=== PATIENT | female | born 1975 | race Caucasian/White ===

== ENCOUNTER 2017-04-24 09:43 | Inpatient (IN) | payer MEDICARE, MEDICAID ==
[2017-04-24 10:12] VITALS: BMI 39.4
[2017-04-24] MEDS ORDERED: Sodium Chloride 0.9% 1,000 ML IV STA (10:45)
--- NOTE | 2017-04-24 10:59 | RAD ---
HISTORY: cough COMPARISON: 05/18/2014 FINDINGS: LUNGS: No active pulmonary disease. PLEURA: No significant pleural effusion identified, no pneumothorax apparent. CARDIOVASCULAR: Normal. OSSEOUS STRUCTURES: No significant abnormalities. VISUALIZED UPPER ABDOMEN: Normal. OTHER FINDINGS: None. IMPRESSION: No active disease.
--- NOTE | 2017-04-24 11:01 | ED PDOC ---
Arrival/HPI - General Chief Complaint: Abdominal Pain Time Seen by Provider: 04/24/17 10:30 Historian: Patient - History of Present Illness Narrative History of Present Illness (Text): 04/24/17 11:01 A 42 year old female, whose past medical history includes hypertension and kidney stones, was brought in by EMS to the emergency department complaining of abdominal pain, back pain and left leg swelling. Patient reports left sided abdominal pain radiating to the left side of back, worse with movement that developed yesterday afternoon. Reports pain is similar to pain from kidney stones. Also notes chronic left leg swelling for the past week and bruising, denies any injury or pain. Reports increase in urination and some nausea but denies any cough, dysuria, right sided abdominal pain, or any other complaints at this time. PMD: Dr. Parks Time/Duration: 24 hours, 1 week Symptom Onset: Sudden Symptom Course: Unchanged Activities at Onset: Rest Context: Home Past Medical History - Provider Review Nursing Documentation Reviewed: Yes - Infectious Disease Hx of Infectious Diseases: None - Tetanus Immunization Tetanus Immunization: Unknown - Cardiac Hx Cardiac Disorders: Yes Hx Hypertension: Yes - Pulmonary Hx Respiratory Disorders: Yes Hx Asthma: Yes - Neurological Hx Neurological Disorder: Yes Other/Comment: sciatica - HEENT Hx HEENT Disorder: No - Renal Hx Renal Disorder: Yes Hx Kidney Stones: Yes - Endocrine/Metabolic Hx Endocrine Disorders: Yes Hx Hypothyroidism: Yes - Hematological/Oncological Hx Blood Disorders: No - Integumentary Hx Dermatological Disorder: No - Musculoskeletal/Rheumatological Hx Musculoskeletal Disorders: Yes Hx Herniated Disk: Yes - Gastrointestinal Hx Gastrointestinal Disorders: No - Genitourinary/Gynecological Hx Genitourinary Disorders: No - Psychiatric Hx Psychophysiologic Disorder: No Hx Substance Use: No - Surgical History Hx Section: Yes (x3) Hx Tubal Ligation: Yes - Anesthesia Hx Anesthesia: Yes Hx Anesthesia Reactions: No Hx Malignant Hyperthermia: No - Suicidal Assessment Feels Threatened In Home Enviroment: No Family/Social History - Physician Review Nursing Documentation Reviewed: Yes Family/Social History: No Known Family HX Smoking Status: Never Smoked Hx Alcohol Use: Yes (OCCASSIONAL) Hx Substance Use: No Hx Substance Use Treatment: No Allergies/Home Meds Allergies/Adverse Reactions: Allergies No Known Allergies Allergy (Verified 04/24/17 10:00) Home Medications: Home Meds Medication Instructions Recorded Confirmed Albuterol HFA [Ventolin HFA 90 2 puff IH [id number] PRN 04/24/17 04/24/17 mcg/actuation (8 g)] Azithromycin [Zithromax] 250 mg PO DAILY 04/24/17 04/24/17 Budesonide/Formoterol Fumarate 2 aer IH TID 04/24/17 04/24/17 [Symbicort] Cabergoline 0.5 mg PO 2XW 04/24/17 04/24/17 Cetirizine HCl [All Day Allergy 10 mg PO DAILY 04/24/17 04/24/17 Relief] Cholecalciferol [Vitamin D] 50,000 iu PO QWK 04/24/17 04/24/17 Fluticasone Propionate [Flonase] 2 spray ANJALI DAILY 04/24/17 04/24/17 Gabapentin [Neurontin] 500 mg PO TID 04/24/17 04/24/17 Hydrochlorothiazide [Microzide] 12.5 mg PO DAILY 04/24/17 04/24/17 Levothyroxine [Synthroid] 100 mcg PO DAILY 04/24/17 04/24/17 Meloxicam [Mobic] 7.5 mg PO BID 04/24/17 04/24/17 Montelukast [Singulair] 10 mg PO DAILY 04/24/17 04/24/17 Oxycodone HCl/Acetaminophen 1 tab PO BID PRN 04/24/17 04/24/17 [Endocet 325 mg-10 mg] amLODIPine [Norvasc] 10 mg PO DAILY 04/24/17 04/24/17 tiZANidine [Zanaflex] 4 mg PO HS 04/24/17 04/24/17 Review of Systems - Review of Systems Constitutional: Fatigue. absent: Fevers Eyes: absent: Vision Changes ENT: Rhinorrhea, Sinus Congestion. absent: Sore Throat, Epistaxis Respiratory: Cough. absent: SOB Cardiovascular: absent: Chest Pain, Edema, Calf Pain, JULIEN Gastrointestinal: Abdominal Pain (left sided), Nausea, Appetite Changes. absent : Diarrhea, Vomiting, Hematochezia, Hematemesis Genitourinary Female: Frequency, Other (increase in urination). absent: Dysuria , Hematuria Musculoskeletal: Back Pain (left side), Other (chronic left leg swelling). absent: Neck Pain Skin: absent: Rash Neurological: absent: Headache, Dizziness Endocrine: absent: Polyuria Hemo/Lymphatic: Easy Bruising Psychiatric: absent: Depression Physical Exam - Physical Exam Narrative Physical Exam (Text): 04/24/17 10:58 Head: Atraumatic. Normocephalic. Eyes: PERRL. EOMI. Conjunctivae are not pale. ENT: Mucous membranes are moist and intact. Oropharynx is clear and symmetric. Neck: Supple. Full ROM. No JVD. No lymphadenopathy. Cardiovascular: Regular rate. Regular rhythm. No murmurs, rubs, or gallops. Distal pulses are 2+ and symmetric. Pulmonary/Chest: No evidence of respiratory distress. Clear to auscultation bilaterally. No wheezing, rales or rhonchi. Abdominal: moderate LUQ, LLQ abdominal pain. No rebound, guarding, or rigidity. No organomegaly. Good bowel sounds. No rlq pain. No pulsatile masses. Back: mild left CVA tenderness. No midline pain or deformity. Extremities: bilateral nonpitting edema. No cyanosis. No clubbing. Full range of motion in all extremities. No calf tenderness. No pain with ROM of ankle, knee. No warmth or erythema to joints. Strong distal pulses. No calf pain. Skin: Skin is warm and dry. No petechiae. No purpura. Bruising noted to lower extremities with no soft tissue swelling or petechiae. Neurological: Alert, awake, and oriented to person, place, time, and situation. Normal speech. Motor and sensory intact. No meningeal signs. Psychiatric: Good eye contact. Normal interaction, affect, and behavior. Vital Signs Reviewed: Yes Vital Signs Temp Pulse Resp BP Pulse Ox 04/24/17 10:00 98.0 F 63 18 123/76 100 04/24/17 09:56 98.0 F 63 18 123/76 100 Temperature: Afebrile Blood Pressure: Normal Pulse: Regular Respiratory Rate: Normal Appearance: Positive for: Non-Toxic, Uncomfortable Pain Distress: Moderate Mental Status: Positive for: Alert and Oriented X 3 Medical Decision Making ED Course and Treatment: 04/24/17 10:58 Impression: A 42 year old female with abdominal pain, back pain and complaint of leg swelling.. Differential Diagnosis included but are not limited to: kidney stones vs. pyelonephritis vs. colitis vs. renal disease Plan: -- chest xray -- CT abdomen/pelvis -- US lower extremity -- labs -- Urinalysis -- IV fluids -- Reassess and disposition Prior Visits: Notes and results from previous visits were reviewed. Patient was last seen in the emergency department on 12/25/14 for evaluation of left ankle pain s/o trip and fall. Progress Notes: Patient reports URI symptoms prior to abdominal pain. Denies cough currently. On exam, no rib pain palpated, no rash. There is some bruising noted but patient does not recollect trauma, no history of taking blood thinners or any history of bleeding disorders. She reports bilateral leg swelling "for a while" but worse in left leg recently. No calf pain noted. No chest pain or sob or pleuritic pain or hypoxia noted. She reports sudden onset of left sided abdominal pain radiating to left back with frequency of urination. 04/24/17 11:01 chest xray: Creator : Matheus Hills MD FINDINGS: LUNGS: No active pulmonary disease. PLEURA: No significant pleural effusion identified, no pneumothorax apparent. CARDIOVASCULAR: Normal. OSSEOUS STRUCTURES: No significant abnormalities. VISUALIZED UPPER ABDOMEN: Normal. IMPRESSION: No active disease. 04/24/17 14:54 CT Abdomen and Pelvis without intravenous contrast Creator : Matheus Hills MD FINDINGS: LOWER THORAX: Unremarkable. LIVER: Unremarkable. No gross lesion or ductal dilatation. GALLBLADDER AND BILE DUCTS: Unremarkable. PANCREAS: Pancreas is normal in size. There is a small ovoid soft tissue density immediately adjacent to or arising from the pancreatic tail, approximately 1.9 cm in greatest dimension. This is slightly more prominent than on prior CT examination of 10/21/2013. This may represent a spleen you will. Given slight interval change, further evaluation is advised with a multiphasic contrast-enhanced study, utilizing a pancreatic protocol. There is no other pancreatic mass identified. There is no peripancreatic fluid. . SPLEEN: Unremarkable. ADRENALS: Unremarkable. No mass. KIDNEYS AND URETERS: There is no renal mass, or calculus. There is mild left hydronephrosis. There is a 5 mm obstructing calculus at the right ureteropelvic junction. There is no right hydronephrosis. VASCULATURE: Unremarkable. No aortic aneurysm. BOWEL: Unremarkable. No obstruction. No gross mural thickening. APPENDIX: Unremarkable. Normal appendix. PERITONEUM: Unremarkable. No free fluid. No free air. LYMPH NODES: Unremarkable. No enlarged lymph nodes. BLADDER: Unremarkable. REPRODUCTIVE: Uterus significant for bilateral Essure contraceptive implants. BONES: No acute fracture. IMPRESSION: Obstructing 5 mm calculus at right ureteropelvic junction with mild left hydronephrosis. 1.9 cm ovoid soft tissue density adjacent to or arising from pancreatic tail, mildly more prominent than on prior examination of 10/21/2013. Possible small annual. Recommend further evaluation with multiphasic contrast enhanced CT utilizing pancreatic protocol. No other significant abnormality. 04/24/17 15:06 On reassessment, patient still with persistent and severe pain with IV morphine. Based on likely intractable renal colic. Patient will be admitted for urology consultation, IV hydration and pain control. Case discussed with Dr. Parks. On re-evaluation, I have reviewed treatment plan of iv toradol, iv antibiotics and urology consultation. Abnormal CT findings as above reviewed with PMD and stressed need for gastroenterology follow-up for possible pancreatic findings and limitations of current CT. - Lab Interpretations Lab Results: 04/24/17 10:40 04/24/17 10:40 Lab Results 04/24/17 10:40: Urine Color Yellow, Urine Appearance Sl cloudy, Urine pH 6.0, Ur Specific [place] 1.015, Urine Protein Negative, Urine Glucose (UA) Negative, Urine Ketones Negative, Urine Blood Large H, Urine Nitrate Negative, Urine Bilirubin Negative, Urine Urobilinogen 0.2, Ur Leukocyte Esterase Negative, Urine RBC 10 - 15, Urine WBC 0 - 2, Urine HCG, Qual Negative 04/24/17 10:40: Sodium 140, Potassium 4.3, Chloride 103, Carbon Dioxide 26, Anion Gap 15, BUN 17, Creatinine 0.8, Est GFR ( Amer) > 60, Est GFR (Non- Af Amer) > 60, Random Glucose 83, Calcium 9.1, Total Bilirubin 0.7, AST 29, ALT 26, Alkaline Phosphatase 66, Total Protein 7.4, Albumin 4.3, Globulin 3.1, Albumin/Globulin Ratio 1.4, Amylase 123, Lipase 141 04/24/17 10:40: PT 9.8 L, INR 0.91 L, APTT 24.9 04/24/17 10:40: WBC 12.3 H D, RBC 4.34, Hgb 13.4, Hct 40.6, MCV 93.5, MCH 30.9, MCHC 33.0, RDW 13.9, Plt Count 321, MPV 9.0, Gran % 73.3 H, Lymph % (Auto) 21.1 L, Harmon % (Auto) 5.0, Eos % (Auto) 0.3 L, Baso % (Auto) 0.3, Gran # 9.01 H, Lymph # 2.6, Harmon # 0.6, Eos # 0.0, Baso # 0.04 I have reviewed the lab results: Yes - RAD Interpretation Radiology Orders: 04/24/17 10:43 ABD & PELVIS W/O PO OR IV CONT [CT] Stat CHEST PORTABLE [RAD] Stat 04/24/17 12:57 DUPLEX LOWER EXTRM VEIN BILAT [US] Stat - Medication Orders Current Medication Orders: Discontinued Medications Sodium Chloride (Sodium Chloride 0.9%) 1,000 mls @ 1,000 mls/hr IV .Q1H STA Stop: 04/24/17 11:44 Last Admin: 04/24/17 10:49 Dose: 1,000 mls/hr eMAR Start Stop Document 04/24/17 10:49 MR (Rec: 04/24/17 10:50 MR [id number]) Intravenous Solution Start Date 04/24/17 Start Time 10:50 End Date 04/24/17 End time 11:50 Total Infusion Time 60 Ceftriaxone Sodium (Rocephin 1 Gram Ivpb) 1 gm in 100 mls @ 200 mls/hr IVPB ONCE STA PRN Reason: Protocol Stop: 04/24/17 15:37 Last Admin: 04/24/17 15:39 Dose: 200 mls/hr eMAR Start Stop Document 04/24/17 15:39 MR (Rec: 04/24/17 15:39 MR [id number]) Intravenous Solution Start Date 04/24/17 Start Time 15:39 End Date 04/24/17 End time 16:09 Total Infusion Time 30 Ketorolac Tromethamine (Toradol) 30 mg IVP ONCE ONE Stop: 04/24/17 15:09 Last Admin: 04/24/17 15:39 Dose: 30 mg MAR Pain Assessment Document 04/24/17 15:39 MR (Rec: 04/24/17 15:40 MR [id number]) Pain Reassessment Is this a pain reassessment? Yes Sleep Is patient sleeping during reassessment? No Presence of Pain Presence of Pain Yes Pain Scale Used Pain Scale Used Numeric Location Left, Right or Bilateral Left Upper or Lower Lower Pain Location Body Site Abdomen Description Description Sharp Intensity of Pain at present 8 Pain Behavior Facial Grimacing Aggravating Factors Changing Position Alleviating Factors/Management Medication Techniques Alleviating Factors Medication IVP Administration Document 04/24/17 15:39 MR (Rec: 04/24/17 15:40 MR [id number]) Charges for Administration # of IVP Administrations 1 Morphine Sulfate (Morphine) 2 mg IVP STAT STA Stop: 04/24/17 11:09 Last Admin: 04/24/17 11:50 Dose: 2 mg MAR Pain Assessment Document 04/24/17 11:50 (Rec: 04/24/17 11:50 MR [id number]) Pain Reassessment Is this a pain reassessment? Yes Sleep Is patient sleeping during reassessment? No Presence of Pain Presence of Pain Yes Pain Scale Used Pain Scale Used Numeric Location Left, Right or Bilateral Left Upper or Lower Lower Pain Location Body Site Abdomen Back Description Description Constant Intensity of Pain at present 10 Pain Behavior Rubbing Site Facial Grimacing Aggravating Factors Changing Position Alleviating Factors/Management Medication Techniques Alleviating Factors Medication IVP Administration Document 04/24/17 11:50 MR (Rec: 04/24/17 11:50 MR [id number]) Charges for Administration # of IVP Administrations 1 - Scribe Statement The provider has reviewed the documentation as recorded by the Pia Masterson Provider Scribe Attestation: All medical record entries made by the Brigidibglenis were at my direction and personally dictated by me. I have reviewed the chart and agree that the record accurately reflects my personal performance of the history, physical exam, medical decision making, and the department course for this patient. I have also personally directed, reviewed, and agree with the discharge instructions and disposition. Disposition/Present on Arrival - Present on Arrival Any Indicators Present on Arrival: No History of DVT/PE: No History of Uncontrolled Diabetes: No Urinary Catheter: No History of Decub. Ulcer: No History Surgical Site Infection Following: None - Disposition Have Diagnosis and Disposition been Completed?: Yes Diagnosis: Abdominal pain, Renal colic on left side, Abnormal abdominal CT scan Disposition: HOSPITALIZED Disposition Time: 13:51 Patient Plan: Admission Condition: FAIR Referrals: Neyda Parks MD [Primary Care Provider] - Follow up with primary Forms: Consulted (Greek)
[2017-04-24] MEDS ORDERED: Morphine 2 mg/ml ISec IVP STA (11:08)
[2017-04-24 11:20] LABS: BASO # 0.04 K/mm3 (0.0-2.0); BASO % 0.3 % (0.0-3.0); EOS % 0.3 % (1.5-5.0); GRAN # 9.01 (1.4-6.5); GRAN % 73.3 % (50.0-68.0); HEMATOCRIT 40.6 % (36.0-48.0); LYMPH # 2.6 (1.2-3.4); LYMPH % 21.1 % (22.0-35.0); MEAN CELL VOLUME 93.5 fl (80.0-105.0); MEAN CORPUSCULAR HEMOGLOBIN 30.9 pg (25.0-35.0); MONO # 0.6 (0.1-0.6); RED CELL DISTRIBUTION WIDTH 13.9 % (11.5-14.5); URINE BILIRUBIN NEGATIVE (NEGATIVE); URINE BLOOD LARGE (NEGATIVE); URINE GLUCOSE (UA) NEGATIVE (NEGATIVE); URINE KETONE NEGATIVE (NEGATIVE); URINE LEUKOCYTE ESTERASE NEGATIVE Leu/uL (NEGATIVE); URINE PROTEIN NEGATIVE mg/dL (<30 mg/dL); URINE UROBILINOGEN 0.2 E.U./dL (<1 E.U./dL); WHITE BLOOD COUNT 12.3 10^3/ul (4.5-11.0)
[2017-04-24 11:22] LABS: URINE APPEARANCE SL CLOUDY (CLEAR); URINE COLOR YELLOW (YELLOW)
[2017-04-24 11:26] LABS: URINE WBC 0 - 2 /hpf (0-6)
[2017-04-24 11:28] LABS: ALB/GLOB RATIO 1.4 (1.1-1.8); ALKALINE PHOSPHATASE 66 U/L (38-126); ALT/SGPT 26 U/L (7-56); AMYLASE 123 U/L (35-125); AST/SGOT 29 U/L (14-36); BILIRUBIN,TOTAL 0.7 mg/dL (0.2-1.3); BLOOD UREA NITROGEN 17 mg/dL (7-21); CALCIUM 9.1 mg/dL (8.4-10.5); CARBON DIOXIDE 26 mmol/L (21-33); CHLORIDE 103 mmol/L (98-107); GFR AFRICAN-AMERICAN > 60; GLUCOSE,RANDOM 83 mg/dL (70-110); LIPASE 141 U/L (23-300); POTASSIUM 4.3 mmol/L (3.6-5.0); SODIUM 140 mmol/L (132-148); TOTAL PROTEIN 7.4 g/dL (5.8-8.3)
[2017-04-24 11:40] LABS: INR 0.91 (0.93-1.08); PARTIAL THROMBOPLASTIN TIME 24.9 Seconds (23.7-30.8)
--- NOTE | 2017-04-24 14:51 | CT ---
PROCEDURE: CT Abdomen and Pelvis without intravenous contrast HISTORY: left flank/abdominal pain COMPARISON: 10/11/2013 TECHNIQUE: Without contrast.. Contrast Dose: 0 Radiation dose: Total exam DLP = 914.67 mGy-cm. This CT exam was performed using one or more of the following dose reduction techniques: Automated exposure control, adjustment of the mA and/or kV according to patient size, and/or use of iterative reconstruction technique. FINDINGS: LOWER THORAX: Unremarkable. LIVER: Unremarkable. No gross lesion or ductal dilatation. GALLBLADDER AND BILE DUCTS: Unremarkable. PANCREAS: Pancreas is normal in size. There is a small ovoid soft tissue density immediately adjacent to or arising from the pancreatic tail, approximately 1.9 cm in greatest dimension. This is slightly more prominent than on prior CT examination of 10/21/2013. This may represent a spleen you will. Given slight interval change, further evaluation is advised with a multiphasic contrast-enhanced study, utilizing a pancreatic protocol. There is no other pancreatic mass identified. There is no peripancreatic fluid. . SPLEEN: Unremarkable. ADRENALS: Unremarkable. No mass. KIDNEYS AND URETERS: There is no renal mass, or calculus. There is mild left hydronephrosis. There is a 5 mm obstructing calculus at the right ureteropelvic junction. There is no right hydronephrosis. VASCULATURE: Unremarkable. No aortic aneurysm. BOWEL: Unremarkable. No obstruction. No gross mural thickening. APPENDIX: Unremarkable. Normal appendix. PERITONEUM: Unremarkable. No free fluid. No free air. LYMPH NODES: Unremarkable. No enlarged lymph nodes. BLADDER: Unremarkable. REPRODUCTIVE: Uterus significant for bilateral Essure contraceptive implants. BONES: No acute fracture. OTHER FINDINGS: None. IMPRESSION: Obstructing 5 mm calculus at right ureteropelvic junction with mild left hydronephrosis. 1.9 cm ovoid soft tissue density adjacent to or arising from pancreatic tail, mildly more prominent than on prior examination of 10/21/2013. Possible small annual. Recommend further evaluation with multiphasic contrast enhanced CT utilizing pancreatic protocol. No other significant abnormality. CT on November zone at so you can go to the 5-1.257 as I knees and 1.25 is 5 percent cerebral no
[2017-04-24] MEDS ORDERED: cefTRIAXone 1 gm 1 GM/100 ML BAG IVPB STA (15:08)
[2017-04-24] MEDS ORDERED: Albuterol-Ipratrop 3 mg / 0.5 (3 ml) UD IH PRN (20:36)
[2017-04-24] MEDS ORDERED: Pneumococcal 23-Valent Vaccine IM ONE (22:35)
[2017-04-24] MEDS: HYDROmorphone 0.5 mg/0.5 ml ISec IVP PRN (22:36)
[2017-04-25] MEDS: Levothyroxine 100 MCG TAB PO SCH (06:30)
[2017-04-25 09:21] LABS: HEMATOCRIT 37.5 % (36.0-48.0); MEAN CELL VOLUME 95.4 fl (80.0-105.0); MEAN CORPUSCULAR HEMOGLOBIN 30.8 pg (25.0-35.0); MEAN CORPUSCULAR HGB CONC 32.3 g/dl (31.0-37.0); RED CELL DISTRIBUTION WIDTH 14.2 % (11.5-14.5); WHITE BLOOD COUNT 8.9 10^3/ul (4.5-11.0)
[2017-04-25] MEDS: cefTRIAXone 1 gm 1 GM/100 ML BAG IVPB SCH (09:52)
[2017-04-25] MEDS ORDERED: CABERGOLINE 0.5 MG PO SCH ×2 (10:00→20:47)
[2017-04-25] MEDS: SYMBICORT IH SCH ×2 (10:04→14:05)
[2017-04-25] MEDS: Fluticasone Nasal 50 mcg/Spray NS SCH (10:18)
--- NOTE | 2017-04-25 15:53 | HP ---
CHIEF COMPLAINT: Abdominal pain, swelling of the leg. HISTORY OF PRESENT ILLNESS: Ms. Edilma Patrick is a 42-year-old, my private patient, with history of hypertension, kidney stones, who was brought to the ER by EMS because of complaining of abdominal pain, back pain, left leg swelling. The patient reports left-sided abdominal pain radiating to the left side of the back, worse with movement, that developed yesterday afternoon. Actually, the patient was seen in my office yesterday in the morning with upper respiratory tract infection symptoms, sore throat, headache, dizziness and the patient was treated, but later on, in the evening, she started more complaints. According to the patient, the patient had similar complaints when she had stones the last time. Also, the patient has history of asthma. The patient is reporting increase in urination, some nausea, but denies any dysuria. No fevers, no chills. PAST MEDICAL HISTORY: Hypertension, asthma, sciatica, history of kidney stones, hypothyroidism, history of herniated disk, section x3, tubal ligation. FAMILY HISTORY: Father and mother, noncontributory. HABITS: Never smoked. Alcohol, yes occasionally. Substance abuse, no. ALLERGIES: THE PATIENT IS NOT ALLERGIC WITH ANY MEDICATIONS. HOME MEDICATIONS: Albuterol, Zithromax, Symbicort, cabergoline, cetirizine, vitamin D, Flonase, Neurontin, Synthroid, Mobic, Singulair, oxycodone, amlodipine, and Zanaflex. REVIEW OF SYSTEMS: The patient is seen and examined on the bedside in the ER, looking comfortable. No nausea, vomiting, or diarrhea. No hematochezia. No headache or dizziness. Complaining of left flank pain and polyuria. PHYSICAL EXAMINATION VITAL SIGNS: Temperature 98, pulse 72, blood pressure 125/72, and respiratory rate 18. HEENT: Head is normocephalic and atraumatic. Eyes, PERRLA. Extraocular muscles intact. Conjunctivae clear. Nose patent. NECK: Supple. No carotid bruits. No JVD or thyromegaly. CHEST: Clear to auscultation. EXTREMITIES: Positive edema. No cyanosis. NEUROLOGICAL: The patient is awake and alert. Moving all 4 extremities. No focal deficits. LABORATORY DATA: White blood cell 12.3, hemoglobin 13.4, hematocrit 40.6, platelets 321. Sodium 140, potassium 4.3. BUN 17 and creatinine 0.8. AST 29 and ALT 26. Urine had large blood. ASSESSMENT AND PLAN: Ms. Edilma Patrick is a 42-year-old lady with leukocytosis and hematuria. Extremity ultrasound is done. Results are pending. Chest x-ray is done. CAT scan of the abdomen and pelvis done, showed ,5 mm calculus on the right ureteropelvic junction with mild left hydronephrosis, 1.1 cm ovoid soft tissue density arising from the pancreatic tail, mildly more prominent than on the prior examination. Further evaluation with multiphasic contrast-enhanced CT utilizing pancreatic protocol. We will consult with Dr. Young for nephrolithiasis and hydronephrosis. The patient has a history of hypothyroidism, asthma, herniated disk, chronic back pain, GERD, dyspepsia. Old medications started. Pain medications given. We will follow up. Neyda Parks MD MTDD
--- NOTE | 2017-04-25 16:18 | CP.PCM.CON ---
<Rahel Silva - Last Filed: 04/25/17 19:37> History of Present Illness - History of Present Illness History of Present Illness: Seen and examined earlier today, chart reviewed. Request for consult is for abnormal ct scan. HPI: This is a 42-year-old female with a past medical history of hypertension and kidney stones, she was brought to the emergency room with complaints of abdominal pain mostly to the left lower quadrant, complain of back pain and left leg swelling. The patient reports that the left-sided abdominal pain radiates to the left side of her back. She states that abdominal pain started late Friday, it was her birthday and her mother through her a barbecue. She recalls eating hamburgers and hotdogs. Late that night she started having nausea and abdominal pain. The pain started to increase on Friday, she describes it as a throbbing pain, still nausea and also episode of vomiting, denies hematemesis. When she also had episode of diarrhea after a formed bowel movement. No reports of melena or bright red blood per rectum. The past 5 days she is complaining of increased heartburn and has been taking OTC Zantac. The patient did complain of chills and a temperature of 101. She does report that her mother has been sick with a cold, denies any recent travel. The patient denies dysuria or hematuria but does report increased urination. On admission she had a CT scan of abdomen and pelvis with no contrast which is reporting a ovoid soft tissue density arising from the pancreatic tail which is reported to be more prominent from compared to the CT scan done on 10/21/2013 and the patient also noted to have a 5 mm obstructing calculus in the ureteropelvic junction with mild left hydronephrosis. Patient also had Dopplers of lower extremity and the preliminary report shows that it's negative both for DVT. Patient denies any pancreatic disease.spaced denies ever having EGD or colonoscopy. Past medical history: Hypertension, kidney stone, 4 years ago, obesity, asthma, hypothyroidism Surgical history: C-sections 3 and tubal ligation LMP: March 16, irregular, patient states she has been seen by the [facility] and reported to be premenopausal, she's states that her mother, grandmother and aunts or also premenopausal in early state. Allergies no known drug allergies Family history: Grandma: Reports cancer but unknown, father: Heart disease Social history: Denies tobacco use, drinks wine on rare occasion, denies substance abuse Medications: Reviewed as per MAR ROS: Systems reviewed with positive findings see HPI. Past Patient History - Infectious Disease Hx of Infectious Diseases: None - Tetanus Immunizations Tetanus Immunization: Unknown - Past Social History Smoking Status: Never Smoked - CARDIAC Hx Cardiac Disorders: Yes Hx Hypertension: Yes - PULMONARY Hx Respiratory Disorders: Yes Hx Asthma: Yes - NEUROLOGICAL Hx Neurological Disorder: Yes Other/Comment: sciatica - HEENT Hx HEENT Problems: Yes (eyeglasses) - RENAL Hx Chronic Kidney Disease: Yes Hx Kidney Stones: Yes - ENDOCRINE/METABOLIC Hx Endocrine Disorders: Yes Hx Hypothyroidism: Yes - HEMATOLOGICAL/ONCOLOGICAL Hx Blood Disorders: No - INTEGUMENTARY Hx Dermatological Problems: No - MUSCULOSKELETAL/RHEUMATOLOGICAL Hx Falls: No - GASTROINTESTINAL Hx Gastrointestinal Disorders: No - GENITOURINARY/GYNECOLOGICAL Hx Genitourinary Disorders: No - PSYCHIATRIC Hx Substance Use: No - SURGICAL HISTORY Hx Surgeries: Yes (tubal, c sec x3) - ANESTHESIA Hx Anesthesia: Yes Hx Anesthesia Reactions: No Hx Malignant Hyperthermia: No Meds Allergies/Adverse Reactions: Allergies Allergy/AdvReac Type Severity Reaction Status Date / Time No Known Allergies Allergy Verified 04/24/17 10:00 - Medications Medications: Current Medications Albuterol/Ipratropium (Duoneb 3 Mg/0.5 Mg (3 Ml) Ud) 3 ml IH [id number] PRN PRN Reason: Shortness of Breath Amlodipine Besylate (Norvasc) 10 mg PO DAILY [facility] Last Admin: 04/25/17 09:51 Dose: 10 mg Fluticasone Propionate (Flonase) 1 actuation NS DAILY [facility] Last Admin: 04/25/17 10:18 Dose: 1 spray Gabapentin (Neurontin) 400 mg PO TID [facility] PRN Reason: Protocol Last Admin: 04/25/17 09:50 Dose: 400 mg Gabapentin (Neurontin) 100 mg PO TID [facility] PRN Reason: Protocol Last Admin: 04/25/17 09:51 Dose: 100 mg Home Med (Home Med) 1 unit IH TID [facility] Home Med (Home Med) 1 unit PO 2XW [facility] Hydrochlorothiazide (Microzide) 12.5 mg PO DAILY [facility] Last Admin: 04/25/17 09:50 Dose: 12.5 mg Hydromorphone HCl (Dilaudid) 0.5 mg IVP Q6H PRN PRN Reason: Pain, severe (8-10) Last Admin: 04/24/17 22:36 Dose: 0.5 mg Ceftriaxone Sodium (Rocephin 1 Gram Ivpb) 1 gm in 100 mls @ 200 mls/hr IVPB DAILY [facility] PRN Reason: Protocol Last Admin: 04/25/17 09:52 Dose: 200 mls/hr Levothyroxine Sodium (Synthroid) 100 mcg PO 0600 [facility] Last Admin: 04/25/17 06:30 Dose: 100 mcg Loratadine (Claritin) 10 mg PO DAILY [facility] Last Admin: 04/25/17 09:41 Dose: 10 mg Montelukast Sodium (Singulair) 10 mg PO DAILY [facility] Last Admin: 04/25/17 09:52 Dose: 10 mg Tizanidine HCl (Zanaflex) 4 mg PO HS [facility] Last Admin: 04/24/17 23:28 Dose: 4 mg Physical Exam - Constitutional Appears: No Acute Distress - Head Exam Head Exam: NORMOCEPHALIC - Eye Exam Eye Exam: Normal appearance. absent: Scleral icterus - ENT Exam ENT Exam: Mucous Membranes Moist - Neck Exam Neck exam: Positive for: Normal Inspection - Respiratory Exam Respiratory Exam: Clear to Auscultation Bilateral, NORMAL BREATHING PATTERN. absent: Respiratory Distress - Cardiovascular Exam Cardiovascular Exam: +S1, +S2 - GI/Abdominal Exam GI & Abdominal Exam: Normal Bowel Sounds, Soft, Tenderness (left lower quadrant) . absent: Guarding, Rebound - Extremities Exam Extremities exam: Positive for: pedal pulses present. Negative for: calf tenderness, pedal edema - Neurological Exam Neurological exam: Alert, CN II-XII Intact, Oriented x3 - Skin Skin Exam: Dry, Warm Results - Vital Signs Recent Vital Signs: Last Vital Signs Temp 98 F 04/25/17 08:19 Pulse 62 04/25/17 08:19 Resp 20 04/25/17 08:19 BP 132/85 04/25/17 09:51 Pulse Ox 98 04/25/17 08:19 - Labs Result Diagrams: 04/25/17 09:10 04/24/17 10:40 Labs: Laboratory Results - last 24 hr 04/25/17 04/25/17 04/25/17 06:00 07:23 09:10 WBC 8.9 D RBC 3.93 Hgb 12.1 Hct 37.5 MCV 95.4 MCH 30.8 MCHC 32.3 RDW 14.2 Plt Count 293 MPV 9.0 POC Glucose (mg/dL) 79 TSH 3rd Generation 7.00 H 04/25/17 11:11 WBC RBC Hgb Hct MCV MCH MCHC RDW Plt Count MPV POC Glucose (mg/dL) 85 TSH 3rd Generation Assessment & Plan - Assessment and Plan (Free Text) Assessment: Assessment: Abnormal CT scan: Tissue density noted and the pancreatic tail more prominent compared to CT scan 10/21/2013 5 mm obstructing calculus utero pelvic junctionwith mild left hydronephrosis Gastroenteritis Heartburn Obesity Hypertension History of renal stones Hypothyroidism Plan: start GI prophylaxis, Pepcid 20 mg daily on ceftriaxone Urology follow-up DVT prophylaxis Consider CT scan with pancreatic protocol, will discuss with attending Thank you for this consult and follow last a participate in your patient's care , further recommendations based on clinical course. Seen and discussed with Dr. Damon. <Arsh Damon V - Last Filed: 04/25/17 23:49> Meds - Medications Medications: Current Medications Albuterol/Ipratropium (Duoneb 3 Mg/0.5 Mg (3 Ml) Ud) 3 ml IH [id number] PRN PRN Reason: Shortness of Breath Amlodipine Besylate (Norvasc) 10 mg PO DAILY [facility] Last Admin: 04/25/17 09:51 Dose: 10 mg Famotidine (Pepcid) 40 mg PO HS [facility] Last Admin: 04/25/17 21:13 Dose: 40 mg Fluticasone Propionate (Flonase) 1 actuation NS DAILY [facility] Last Admin: 04/25/17 10:18 Dose: 1 spray Gabapentin (Neurontin) 400 mg PO TID [facility] PRN Reason: Protocol Last Admin: 04/25/17 18:39 Dose: 400 mg Gabapentin (Neurontin) 100 mg PO TID [facility] PRN Reason: Protocol Last Admin: 04/25/17 18:39 Dose: 100 mg Home Med (Home Med) 0 unit IH TID [facility] Home Med (Home Med) 0.5 unit PO MON [facility] Home Med (Home Med) 0.5 unit PO FRI [facility] Hydrochlorothiazide (Microzide) 12.5 mg PO DAILY [facility] Last Admin: 04/25/17 09:50 Dose: 12.5 mg Hydromorphone HCl (Dilaudid) 0.5 mg IVP Q6H PRN PRN Reason: Pain, severe (8-10) Last Admin: 04/25/17 16:57 Dose: 0.5 mg Ceftriaxone Sodium (Rocephin 1 Gram Ivpb) 1 gm in 100 mls @ 200 mls/hr IVPB DAILY [facility] PRN Reason: Protocol Last Admin: 04/25/17 09:52 Dose: 200 mls/hr Sodium Chloride (Sodium Chloride 0.9%) 1,000 mls @ 100 mls/hr IV .Q10H [facility] Last Admin: 04/25/17 21:13 Dose: 100 mls/hr Levothyroxine Sodium (Synthroid) 100 mcg PO 0600 [facility] Last Admin: 04/25/17 06:30 Dose: 100 mcg Loratadine (Claritin) 10 mg PO DAILY [facility] Last Admin: 04/25/17 09:41 Dose: 10 mg Montelukast Sodium (Singulair) 10 mg PO DAILY [facility] Last Admin: 04/25/17 09:52 Dose: 10 mg Ondansetron HCl (Zofran Inj) 4 mg IVP Q6H PRN PRN Reason: Nausea/Vomiting Tamsulosin HCl (Flomax) 0.4 mg PO DAILY [facility] Tizanidine HCl (Zanaflex) 4 mg PO HS [facility] Last Admin: 04/24/17 23:28 Dose: 4 mg Results - Vital Signs Recent Vital Signs: Last Vital Signs Temp 98.3 F 04/25/17 16:00 Pulse 73 04/25/17 16:00 Resp 18 04/25/17 16:00 BP 110/79 04/25/17 16:00 Pulse Ox 99 04/25/17 16:00 - Labs Result Diagrams: 04/25/17 09:10 04/24/17 10:40 Labs: Laboratory Results - last 24 hr 04/25/17 04/25/17 04/25/17 06:00 07:23 09:10 WBC 8.9 D RBC 3.93 Hgb 12.1 Hct 37.5 MCV 95.4 MCH 30.8 MCHC 32.3 RDW 14.2 Plt Count 293 MPV 9.0 POC Glucose (mg/dL) 79 TSH 3rd Generation 7.00 H 04/25/17 04/25/17 04/25/17 11:11 16:04 21:59 WBC RBC Hgb Hct MCV MCH MCHC RDW Plt Count MPV POC Glucose (mg/dL) 85 88 138 H TSH 3rd Generation Attending/Attestation - Attestation I have personally seen and examined this patient.: Yes I have fully participated in the care of the patient.: Yes I have reviewed all pertinent clinical information: Yes
[2017-04-25] MEDS: HYDROmorphone 0.5 mg/0.5 ml ISec IVP PRN (16:57)
[2017-04-25] MEDS: Sodium Chloride 0.9% 1,000 ML IV SCH (21:13)
--- NOTE | 2017-04-25 21:41 | US ---
HISTORY: Leg pain and swelling. Evaluate for DVT PHYSICIAN(S): Matheus Palacios MD. TECHNIQUE: Duplex sonography and color-flow Doppler with graded compression were used to evaluate the deep venous systems of both lower extremities. FINDINGS: The visualized deep venous systems of both lower extremities are sonographically normal and compressible. Normal wave forms and augmentation are seen. There is no sonographic evidence for deep venous thrombosis in the visualized segments of both lower extremities. IMPRESSION: No sonographic evidence for deep venous thrombosis in the visualized segments of both lower extremities.
--- NOTE | 2017-04-26 00:04 | PN ---
DATE: SUBJECTIVE: The patient is 42 years old female. The patient was seen and examined in the room, looking comfortable. No nausea, vomiting or diarrhea. No hematuria or hematochezia. Swelling of the leg is better. No chest pain. Coughing is better. Shortness of breath is better. No headache or dizziness, was still having flank pain. No fever. No chills. PHYSICAL EXAMINATION: VITAL SIGNS: Temperature 98, pulse 52, respiratory rate 20, blood pressure 132/85 and pulse oximetry 98%. HEENT: Head normocephalic and atraumatic. Eyes, PERRLA. Extraocular muscles intact. Conjunctivae clear. Nose patent. Mucous membrane moist. NECK: Supple. No carotid bruits. No JVD or thyromegaly. CHEST: Bilaterally symmetrical. HEART: S1 and S2 positive. LUNGS: Clear to auscultation. ABDOMEN: Soft. Bowel sounds are present. No organomegaly. EXTREMITIES: No edema. No cyanosis. NEUROLOGIC: The patient is awake, alert and moving all 4 extremities. No focal deficit. LABORATORY DATA: White blood cell 8.9, hemoglobin 12.1, hematocrit 37.5 and platelets 293. Sodium 140, potassium 4.3, BUN 17 and creatinine 0.8. Glucose 83. MEDICATIONS: Hydrochlorothiazide, Dilaudid, Rocephin, Synthroid, [place], Singulair and Zanaflex. ASSESSMENT AND PLAN: Ms. Celina France is a 42 years old lady with upper respiratory tract infection, failed outpatient treatment, came with flank pain, hypertension, history of renal stones, hypothyroidism, obesity, heartburn, gastroenteritis, 5 mm obstructing calculus in ureteropelvic junction with mild left hydronephrosis. Abnormal CAT scan, tissue density noted and pancreatic tail more prominent compared to CT scan. Gastrointestinal consult called, seen by SARAH Yap. The patient is getting gastrointestinal prophylaxis, 20 mg Pepcid, on ceftriaxone. Urologist is on the case, waiting for the input. Deep venous thrombosis prophylaxis, waiting for gastroenterology may be the need. CAT scan of the pancreas with the pancreatic protocol. Extremity ultrasound is done. Results are pending. Abdomen and pelvis x-rays are done. Getting pain medication. Allergy medications, that is why the patient on Flomax, getting gabapentin and amlodipine for hypertension. Normal saline given. Zofran for nauseousness. Repeat labs. We will follow. Neyda Parks MD
--- NOTE | 2017-04-26 03:38 | CON ---
PULMONARY CONSULT DATE: 04/25/2017 REFERRING PHYSICIAN: Neyda Parks MD REASON FOR CONSULT: Chronic obstructive lung disease, may have sleep apnea syndrome, and admitted with renal stone with obstruction. HISTORY OF PRESENT ILLNESS: This is a 42 years old female with known past medical history significant for hypertension, asthma, lumbar radiculopathy, history of renal stone in the past, hypothyroid, presented with colicky abdominal pain, leg swelling, and has abdominal CT done shows renal stone with hydronephrosis. She admitted for further workup and pain management. Admit to snoring at nighttime, daytime sleepy, and tired. PAST MEDICAL HISTORY: As per history of present illness. FAMILY HISTORY: No significant cardiopulmonary disease reported. SOCIAL HISTORY: Never smoked. Denied any alcohol abuse. ALLERGIES: ALLERGY TO NO MEDICATIONS. MEDICATIONS: She is on Claritin 10 mg daily, Dilaudid 0.5 mg q.6 hours p.r.n., DuoNeb q.6 hours, Flonase one spray each nostril daily, also getting home meds of Symbicort, hydrochlorothiazide 12.5 mg daily, Neurontin 400 mg 3 times a day, Norvasc 10 mg daily, Pepcid 40 mg daily, Rocephin 1 g daily, Singulair 10 mg daily, Synthroid 100 mcg daily, Zanaflex 4 mg at bedtime, and Zofran p.r.n. basis. LABORATORY DATA: Shows hemoglobin 12.1, hematocrit 37.5, WBC 8.9, and platelet is 293. Sodium 140, potassium 4.3, chloride 103, bicarbonate 26, BUN 17, creatinine 0.8, glucose 83, calcium 9.1, AST 29, ALT 26, alk phos is 66, albumin is 4.3, and 7.0. CAT scan of the abdomen and pelvis done on admission shows obstructing 5 mm calculus at the right ureteropelvic junction with mild hydronephrosis, there is also 1.9 cm ovoid soft-tissue density adjacent or rising from the pancreatic tail, mildly or more prominent than the prior examination since 2012. IMPRESSION ADN PLAN: Obstructive renal stone with hydronephrosis, chronic obstructive lung disease, may have obstructive sleep apnea syndrome, also has some leukocytosis and hematuria, hypertension, hypothyroid, and lumbar radiculopathy. I agrees with Dr. Parks of the present management, may had IV fluid, normal saline 70 mL/hour. We will add Flomax p.o. daily. Continue pain management, gastric prophylaxis, DVT prophylaxis, and urology consult. We will recommend PFT and sleep study upon discharge as an outpatient. Thank you and will follow with you. Evelia Shaw MD
[2017-04-26] MEDS: Sodium Chloride 0.9% 1,000 ML IV SCH ×2 (06:38→17:28)
[2017-04-26] MEDS: Levothyroxine 100 MCG TAB PO SCH (06:38)
[2017-04-26 07:52] LABS: HEMATOCRIT 38.4 % (36.0-48.0); MEAN CELL VOLUME 94.8 fl (80.0-105.0); MEAN CORPUSCULAR HEMOGLOBIN 30.4 pg (25.0-35.0); MEAN PLATELET VOLUME 8.8 fl (7.0-11.0); WHITE BLOOD COUNT 9.2 10^3/ul (4.5-11.0)
[2017-04-26] MEDS: HYDROmorphone 0.5 mg/0.5 ml ISec IVP PRN ×3 (08:17→21:26)
[2017-04-26 08:19] LABS: ALB/GLOB RATIO 1.3 (1.1-1.8); ALKALINE PHOSPHATASE 50 U/L (38-126); ALT/SGPT 21 U/L (7-56); AST/SGOT 24 U/L (14-36); BILIRUBIN,TOTAL 0.2 mg/dL (0.2-1.3); BLOOD UREA NITROGEN 16 mg/dL (7-21); CALCIUM 8.6 mg/dL (8.4-10.5); CARBON DIOXIDE 26 mmol/L (21-33); CHLORIDE 107 mmol/L (98-107); GFR AFRICAN-AMERICAN > 60; GLUCOSE,RANDOM 84 mg/dL (70-110); POTASSIUM 4.1 mmol/L (3.6-5.0); SODIUM 140 mmol/L (132-148); TOTAL PROTEIN 6.1 g/dL (5.8-8.3)
[2017-04-26] MEDS: CABERGOLINE 0.5 MG PO SCH (10:38)
[2017-04-26] MEDS: Fluticasone Nasal 50 mcg/Spray NS SCH (10:39)
[2017-04-26] MEDS: SYMBICORT IH SCH ×3 (10:39→17:28)
[2017-04-26] MEDS: cefTRIAXone 1 gm 1 GM/100 ML BAG IVPB SCH (10:39)
--- NOTE | 2017-04-26 21:29 | PN ---
PULMONARY PROGRESS NOTE DATE: 04/26/2017 REFERRING PHYSICIAN: Dr. Parks. SUBJECTIVE: He is sitting at the side of the bed. Still having recurrent renal colic pain, on IV fluid, drinking water. No nausea. No vomiting. No chest pain. No leg pain or leg swelling. PHYSICAL EXAMINATION: GENERAL: Mild distress secondary to pain. VITAL SIGNS: Temperature is 98, heart rate 77, respiratory rate 20, blood pressure 186/74 and pulse oximetry 98% on room air. HEENT: Moist mucous membrane. No oral thrush. NECK: Supple. No JVD. LUNGS: Has a fair airflow with few rhonchi. HEART: S1 and S2. ABDOMEN: Positive bowel sound, pain, costovertebral angle tenderness. EXTREMITIES: There is no edema. NEUROLOGIC: Awake, alert and follow simple commands. MEDICATIONS: She is on Claritin 10 mg daily, Dilaudid 0.5 mg q. 6 hours p.r.n., DuoNeb q. 6 hours, Flomax 0.4 mg daily, Flonase one spray each nostril daily, hydrochlorothiazide 12.5 mg daily, gabapentin 400 mg 3 times a day, Neurontin 100 mg 3 times a day, Norvasc 10 mg daily, Pepcid 40 mg at bedtime, Rocephin 1 g daily, Singulair 10 mg daily, IV fluid normal saline 100 mL per hour, Synthroid 100 mcg daily, Zanaflex 4 mg at bedtime and Zofran p.r.n. basis. LABORATORY DATA: Shows hemoglobin 12.3, hematocrit 38.4, WBC 9.2 and platelet is 291. Sodium 140, potassium 4.1, chloride 107, bicarbonate 26, BUN 16, creatinine 0.8, glucose 84 and calcium is 8.6. AST 24, ALT 21, albumin is 3.5. TSH is 7.0. IMPRESSION AND PLAN: Obstructive renal stone, hydronephrosis, chronic obstructive lung disease, may have obstructive sleep apnea syndrome. Also, have hypertension, hypothyroid, lumbar radiculopathy. Pulmonary point of view doing okay. Continue IV fluid. Flomax pain management. Gastric prophylaxis. Deep venous thrombosis prophylaxis. Urology followup. Thank you and we will follow with you. Evelia Shaw MD [facility] # [id number]
[2017-04-27] MEDS: Sodium Chloride 0.9% 1,000 ML IV SCH ×2 (01:30→14:54)
--- NOTE | 2017-04-27 02:05 | PN ---
DATE: SUBJECTIVE: The patient is seen and examined at the bedside. Still having flank pain, but feels better. Coughing little better. No nausea, vomiting or diarrhea. No headache or dizziness. No chest pain or palpitation. No fever. No chills. She passed some sand type thing because she was straining the urine. PHYSICAL EXAMINATION: VITAL SIGNS: Temperature 98.5, pulse 77, blood pressure 186/74 and respiratory rate 18. HEENT: Head normocephalic and atraumatic. Eyes, PERRLA. Extraocular muscles intact. Conjunctivae clear. Nose patent. Mucous membrane moist. NECK: Supple. No carotid bruits. No JVD or thyromegaly. CHEST: Bilaterally symmetrical. HEART: S1 and S2 positive. LUNGS: Clear to auscultation. ABDOMEN: Soft. Bowel sounds are present. No organomegaly. EXTREMITIES: No edema. No cyanosis. NEUROLOGIC: The patient is awake, alert and moving all 4 extremities. No focal deficit. MEDICATIONS: Claritin, Dilaudid, DuoNeb, Flomax and Flonase. HOME MEDICATIONS: Hydrochlorothiazide, Neurontin, Norvasc, Pepcid, Rocephin, Singulair, Synthroid, Zanaflex and Zofran. LABORATORY DATA: White blood cell 9.2, hemoglobin 12.3, hematocrit 38.4 and platelets 291. Sodium 140, potassium 4.1, BUN 15, creatinine 0.8 and glucose 138. TSH is 7.0. ASSESSMENT AND PLAN: Ms. Edilma Patrick is 42 years old lady with hypothyroidism, history of leukocytosis improved, hematuria, nephrolithiasis, hydronephrosis, passed some sand-like stuff. I spoke with the patient's nurse Jan to send that analysis. The patient is straining urine. Chronic obstructive lung disease, obstructive sleep apnea syndrome, history of hypertension, lumbar radiculopathy. Seen by Dr. Young. Dr. Shwa give Flomax. She is doing better. Abnormal CAT scan. SARAH Yap added pancreatic protocol CAT scan. Rule out pancreatic lesion. Upper respiratory infection, improving. Gastrointestinal and deep venous thrombosis prophylaxis. Repeat labs. We will followup. Neyda Parks MD [facility] # [id number]
[2017-04-27] MEDS: Levothyroxine 100 MCG TAB PO SCH (05:52)
[2017-04-27] MEDS: HYDROmorphone 0.5 mg/0.5 ml ISec IVP PRN ×3 (06:22→20:58)
[2017-04-27] MEDS: cefTRIAXone 1 gm 1 GM/100 ML BAG IVPB SCH (10:34)
[2017-04-27] MEDS: SYMBICORT IH SCH ×3 (10:35→18:03)
[2017-04-27] MEDS ORDERED: Iohexol 350 MG/100 ML VIAL ONE (12:07)
[2017-04-27] MEDS: Fluticasone Nasal 50 mcg/Spray NS SCH (14:53)
--- NOTE | 2017-04-27 16:40 | CT ---
PROCEDURE: CT Abdomen and Pelvis with contrast HISTORY: r/o pancreatic lesion COMPARISON: 04/24/2017 TECHNIQUE: Contrast dose: 100 mL Omnipaque 350 Radiation dose: Total exam DLP = 3872.94 mGy-cm. This CT exam was performed using one or more of the following dose reduction techniques: Automated exposure control, adjustment of the mA and/or kV according to patient size, and/or use of iterative reconstruction technique. FINDINGS: LOWER THORAX: Unremarkable. LIVER: Unremarkable. No gross lesion or ductal dilatation. GALLBLADDER AND BILE DUCTS: Unremarkable. PANCREAS: Once again, note is made of an ovoid mass anterior to the distal aspect of the pancreatic tail. On the current examination, it appears to be in contiguity with the pancreas. It measures approximately 1.5 cm in greatest dimension on the current examination. In retrospect, measurement on thin sections from earlier examination of 10/21/2013 demonstrates no significant interval change in size. It is isodense to both the pancreas and spleen on all 3 phases of enhancement. Although this is felt to most likely represent a prominent lobulation of the pancreatic tail, this could also represent a splenule. Given the lack of appreciable interval change since 2013, this is unlikely to represent a pancreatic neoplasm. Nevertheless, continued surveillance is advised. There is no pancreatic ductal dilatation. SPLEEN: Unremarkable. ADRENALS: Unremarkable. No mass. KIDNEYS AND URETERS: Obstructing 6 mm calculus at left ureteropelvic junction. Mild left hydronephrosis. No renal mass. No right calculus or hydronephrosis. VASCULATURE: Unremarkable. No aortic aneurysm. BOWEL: Unremarkable. No obstruction. No gross mural thickening. APPENDIX: Normal appendix. PERITONEUM: Unremarkable. No free fluid. No free air. LYMPH NODES: Unremarkable. No enlarged lymph nodes. BLADDER: Unremarkable. REPRODUCTIVE: Unremarkable uterus. Possible left ovarian cyst, 3.3 cm. Recommend correlation with transvaginal pelvic ultrasound. Bilateral Essure contraceptive implants. BONES: No acute fracture. OTHER FINDINGS: None. IMPRESSION: Probable prominent lobulation of the pancreatic tail or unchanged in size compared to examination of 10/21/2013. Less likely, this represents a splenule, a developmental variant. Followup is advised with contrast-enhanced CT. Low suspicion for pancreatic neoplasm given the lack of interval change. Obstructing 6 mm calculus at left ureteropelvic junction. Mild left hydronephrosis. Additional minor findings as above.
--- NOTE | 2017-04-27 23:54 | PCM.URO ---
Urology Progress Note - Subjective Abdominal Pain: Yes Flank Pain: Yes (consistent with stone) - Objective Lab Studies: Reviewed (and ct reveiwed) Intake & Output: Intake & Output 04/27/17 04/27/17 04/28/17 06:59 18:59 06:59 Intake Total 260 260 Balance 260 260 Intake: Oral 260 260 Other: # Voids Urine, Voided 2 # Bowel Movements 0 Vital Signs: Vital Signs - 24 hr 04/27/17 04/27/17 04/27/17 07:26 10:33 16:00 Temperature 98.0 F 97.8 F Pulse Rate 60 58 L Respiratory 16 18 Rate Blood Pressure 107/69 107/69 121/68 O2 Sat by Pulse 98 98 Oximetry - Plan Intake & Output: Yes Additional Information: gu plan -pt to operating tomorrow for cystoscopy and stent insertion possible stone basketing and possible laser lithotripsy
--- NOTE | 2017-04-28 00:11 | PN ---
DATE: SUBJECTIVE: The patient is a 42-year-old female. The patient is seen and examined at the bedside. Still having pain in the left flank, going to the back and coming on the front also. Even pain medication is not helping. No nausea, vomiting. No headache or dizziness. No chest pain. No fever. No shortness of breath. No palpitation. No swelling of the legs. PHYSICAL EXAMINATION: VITAL SIGNS: Temperature 97.8, pulse 58, blood pressure 120/68, respiratory rate 18. HEENT: Head normocephalic and atraumatic. Eyes, PERRLA. Extraocular muscles intact. Conjunctivae clear. Nose patent. Mucous membrane moist. NECK: Supple. No carotid bruits. No JVD or thyromegaly. CHEST: Bilaterally symmetrical. HEART: S1 and S2 positive. LUNGS: Clear to auscultation. ABDOMEN: Soft. Tender in the left flank area. No organomegaly. Bowel sounds are positive. EXTREMITIES: No edema. No cyanosis. NEUROLOGIC: The patient is awake, alert, follow simple command. Oriented x3. MEDICATIONS: Claritin, Dilaudid, DuoNeb, Flomax, Flonase, hydrochlorothiazide, Neurontin, Norvasc, Pepcid, Rocephin, Singular, Synthroid, Zanaflex. LABORATORY DATA: White blood cells 9.2, hemoglobin 12.3, hematocrit 38.4, platelets 291. Sodium 140, potassium 4.1, BUN 16, creatinine 0.8, glucose of 138. ASSESSMENT AND PLAN: Ms. Edilma Patrick is 42-year-old lady with leukocytosis got better, hyperglycemia, hypothyroidism, hematuria, has nephrolithiasis. Plan for CAT scan of the abdomen, pancreatic protocol, according to that probably prominent lobulation of the pancreatic tail or unchanged in the size compared to her admission on 10/21/2013. Less likely this represents a new developmental variant, follow up is advised with a contrast enhanced CT, low suspicion of the pancreatic ca , given the lack of interval change, obstructing a 6 mm calculus at left ureteropelvic junction, mild left hydronephrosis, history of asthma, chronic obstructive lung disease, obstructive sleep apnea syndrome, hypertension, hypothyroidism, lumbar radiculopathy, getting Flomax. Gastric prophylaxis. Deep vein thrombosis prophylaxis. Urologist is on the case. I do not have any documentation in the computer from the urologist. I never received any call. I do not know his plan, but as per patient, she is agreeing for some procedure on Friday, maybe a ureteral stent, but I am not sure, waiting for Dr. Young's input, his documentation in the computer or his plan to be very clear; meanwhile, continue pain medication and present treatment. We will follow up. Neyda Parks MD MTDD
--- NOTE | 2017-04-28 03:15 | PN ---
PULMONARY PROGRESS NOTE DATE: 04/27/2017 REFERRING PHYSICIAN: Neyda Parks MD SUBJECTIVE: She is lying in the bed head at 45 degrees and still having renal pain. No cough. No sputum production. No chest pain. Making urine. No dysuria. No leg pain or leg swelling. OBJECTIVE: GENERAL: In no acute distress. VITAL SIGNS: Temperature 98, heart rate 58, respiratory rate 18, blood pressure 121/68, and pulse ox 98% on room air. HEENT: Moist mucous membranes. Crowded airway. NECK: Supple. No JVD. LUNGS: Has fair airflow with rhonchi. HEART: S1 and S2. ABDOMEN: Positive bowel sounds. Positive tenderness on the flank area. EXTREMITIES: There is no edema. NEUROLOGIC: Awake and alert. Follows simple commands. MEDICATIONS: She is on Claritin 10 mg daily, Dilaudid 0.5 mg q.6 hours p.r.n., DuoNeb q.6 hours, Flomax 0.4 mg daily, Flonase 1 spray each nostril daily, insulin coverage, hydrochlorothiazide 12.5 mg daily, Neurontin 400 mg 3 times a day, also Neurontin 100 mg 3 times a day, Norvasc 10 mg daily, Pepcid 40 mg at bedtime, Rocephin 1 g daily, Singulair 10 mg daily, IV fluids, normal saline 100 mL per hour, Synthroid 100 mcg daily, and Zanaflex 4 mg daily p.r.n. LABORATORY DATA: Reviewed. CT of the pancreas done, the patient probably prominent lobulation of the pancreatic tail unchanged in the size compared to examination on 10/21, less likely this represent a splenule or developmental abnormality, low suspicious for pancreatic neoplasm, there is a 6-mm calculus at the left ureteropelvic junction, mild left hydronephrosis. IMPRESSION AND PLAN: Obstructive renal stone, hydronephrosis, chronic obstructive lung disease, may have obstructive sleep apnea syndrome, hypertension,hypothyroid, lumbar radiculopathy, and pancreatic abnormality. The patient is seen by GI, waiting for urology followup, for now continue IV fluids, increase Flomax to 0.8 mg pain management, encourage p.o. intake, sleep apnea precaution, if sedated need close cardiopulmonary evaluation when sedated. Thank you and we will follow with you. Evelia Shaw MD
[2017-04-28] MEDS: HYDROmorphone 0.5 mg/0.5 ml ISec IVP PRN ×2 (04:29→12:50)
[2017-04-28] MEDS: Levothyroxine 100 MCG TAB PO SCH (05:34)
[2017-04-28 06:54] LABS: HEMATOCRIT 36.8 % (36.0-48.0); MEAN CELL VOLUME 94.6 fl (80.0-105.0); MEAN CORPUSCULAR HEMOGLOBIN 30.3 pg (25.0-35.0); MEAN CORPUSCULAR HGB CONC 32.1 g/dl (31.0-37.0); MEAN PLATELET VOLUME 8.7 fl (7.0-11.0); RED CELL DISTRIBUTION WIDTH 13.9 % (11.5-14.5); WHITE BLOOD COUNT 8.4 10^3/ul (4.5-11.0)
[2017-04-28 07:00] LABS: ALB/GLOB RATIO 1.3 (1.1-1.8); ALKALINE PHOSPHATASE 46 U/L (38-126); ALT/SGPT 26 U/L (7-56); AST/SGOT 27 U/L (14-36); BILIRUBIN,TOTAL 0.4 mg/dL (0.2-1.3); BLOOD UREA NITROGEN 13 mg/dL (7-21); CALCIUM 8.8 mg/dL (8.4-10.5); CARBON DIOXIDE 29 mmol/L (21-33); CHLORIDE 104 mmol/L (98-107); GFR AFRICAN-AMERICAN > 60; GLUCOSE,RANDOM 88 mg/dL (70-110); POTASSIUM 4.6 mmol/L (3.6-5.0); SODIUM 141 mmol/L (132-148); TOTAL PROTEIN 6.4 g/dL (5.8-8.3)
[2017-04-28] MEDS: Sodium Chloride 0.9% 1,000 ML IV SCH ×2 (07:05→12:54)
[2017-04-28] MEDS: cefTRIAXone 1 gm 1 GM/100 ML BAG IVPB SCH (09:19)
[2017-04-28] MEDS: Fluticasone Nasal 50 mcg/Spray NS SCH (09:20)
[2017-04-28] MEDS: CABERGOLINE 0.5 MG PO SCH (09:21)
[2017-04-28] MEDS: SYMBICORT IH SCH ×2 (09:22→15:06)
[2017-04-28] MEDS ORDERED: Lidocaine 2% Jelly (Uro-Jet) ONE (14:47)
[2017-04-28] MEDS ORDERED: Iohexol 240 (50 ml) ONE (14:47)
[2017-04-28] MEDS ORDERED: Propofol 10 mg/ml Inj (20 ML) ONE (14:48)
[2017-04-28] MEDS ORDERED: Midazolam 2 MG/2 ML VIAL ONE (14:48)
[2017-04-28] MEDS ORDERED: Gentamicin 80 mg/2mL Inj. ONE (15:39)
[2017-04-28] MEDS ORDERED: HYDROmorphone 0.5 mg/0.5 ml ISec IVP PRN (16:10)
[2017-04-28] MEDS ORDERED: Lactated Ringer's 1,000 ML IV SCH (16:15)
[2017-04-28] MEDS ORDERED: Ciprofloxacin 400mg/200ml D5W 400 MG/200 ML BAG IVPB STA (16:45)
[2017-04-28] MEDS: Oxycodone/Acetaminophen 5/325 mg Tab PO PRN (21:24)
--- NOTE | 2017-04-28 22:52 | PN ---
PULMONARY PROGRESS NOTE DATE: 04/28/2017 REFERRING PHYSICIAN: Dr. Parks. SUBJECTIVE: Subjectively, the patient is seen in the recovery room status post cystoscopy and laser lithotripsy of the left ureteral stone and stent placement. She is sleepy, but arousable. No headache. No rhinitis. No nausea. No vomiting. Abdominal pain is already better. No leg pain or leg swelling. PHYSICAL EXAMINATION GENERAL: In no acute distress. VITAL SIGNS: Temperature is 98, heart rate is 80, respiratory rate is 18, blood pressure 160/78, pulse ox 95% on room air. HEENT: Moist mucous membranes. Crowded airway. Mallampati score is IV. NECK: Supple. No JVD. LUNGS: Has fair airflow with few rhonchi. HEART: S1 and S2. ABDOMEN: Soft and nontender. No organomegaly. EXTREMITIES: No edema. NEUROLOGIC: Awake and alert, follows simple commands. MEDICATIONS: She is on Claritin 10 mg daily, Dilaudid 0.5 mg IV q. 6 hours p.r.n., DuoNeb q. 6 hours p.r.n., Flomax 0.4 mg daily, Flonase 1 spray each nostril daily, hydrochlorothiazide 12.5 mg daily, gabapentin 400 mg 3 times a day, Neurontin 100 mg 3 times a day, Norvasc 10 mg daily, Pepcid 40 mg at bedtime, Percocet 5/325 one tablet q. 6 hours p.r.n., Rocephin 1 g IV daily, Singulair 10 mg daily, IV fluids, normal saline 100 mL per hour, Synthroid 100 mcg daily, and Zanaflex 4 mg at bedtime. LABORATORY DATA: Shows hemoglobin 11.8, hematocrit 36.8, WBC 8.4, platelet is 287. Sodium 141, potassium 4.6, chloride 104, bicarbonate 29, BUN is 13, creatinine 0.8, glucose 88, AST 27, ALT 26, alk phos is 46, albumin is 3.6. IMPRESSION AND PLAN: Obstructive left ureteral stone with hydronephrosis, chronic obstructive lung disease, may have obstructive sleep apnea syndrome, hypertension,hypothyroid, lumbar radiculopathy, and pancreatic abnormality on CAT scan, status post cystoscopy, laser lithotripsy and stent placement. Sleep apnea precautions, keep head 45 degrees. Gastric prophylaxis, deep venous thrombosis prophylaxis, keep head 45 degrees, urology followup. Follow up labs in the morning. Thank you and we will follow with you. Evelia Shwa MD
--- NOTE | 2017-04-29 02:25 | PN ---
SUBJECTIVE: The patient is a 42-year-old female. The patient is seen and examined on the bedside. Looking comfortable. I saw the patient early in the morning. After that, she went for procedure by Dr. Young. Still having flank pain. No nausea, vomiting or diarrhea. No hematuria or hematochezia. No swelling of the leg. No chest pain. No palpitation. PHYSICAL EXAMINATION: VITAL SIGNS: Temperature 98.2, pulse 80, blood pressure 116/70, respiratory rate 18. HEENT: Head normocephalic and atraumatic. Eyes, PERRLA. Extraocular muscles intact. Conjunctivae clear. Nose patent. Mucous membrane moist. NECK: Supple. No carotid bruits. No JVD or thyromegaly. CHEST: Bilaterally symmetrical. HEART: S1 and S2 positive. LUNGS: Clear to auscultation. ABDOMEN: Soft. Bowel sounds are positive. No organomegaly. EXTREMITIES: No edema. No cyanosis. NEUROLOGIC: The patient is awake, alert. Moving all four extremities. No focal deficit. MEDICATIONS: Claritin, Dilaudid, DuoNeb, Flomax, Flonase, hydrochlorothiazide, Neurontin, Norvasc, Pepcid, Percocet, Rocephin, Singulair, NS, Synthroid, Zanaflex. LABORATORY DATA: White blood cells 4.8, hemoglobin 11.8, hematocrit 36.8, and platelets 287. Sodium 141, potassium 4.6, BUN 13, creatinine 0.8, glucose 138. ASSESSMENT AND PLAN: The patient is a 42-year-old lady with anemia maybe delusional, the leukocytosis got better, hyperglycemia, hematuria, went for fluoroscopy and cystoscopy. Left urethrogram and pyelogram done. Left urethroscopy done with laser lithotripsy. Left urethral stent inserted by Dr. Young. History of hypertension, chronic obstructive lung disease. Abdominal CAT scan showed small spinules. Discussion done with Dr. Damon. Obstructive renal stone, obstructive sleep apnea syndrome, hypothyroidism, lumbar radiculopathy. GI and DVT prophylaxis. Urologist and GI is on the case. Continue intravenous fluid. encourage fluid intake, sleep apnea precautions. GI and DVT prophylaxis. Repeat labs. We will follow. Neyda Parks MD AKIL
--- NOTE | 2017-04-29 03:31 | CON ---
DATE: HISTORY OF PRESENT ILLNESS: History is from the patient and from the chart. The patient was apparently admitted on 04/24/2017 according to the face sheet. Urology consult was placed on 04/26/2017. At that time, I had the opportunity to speak to the patient directly at about 8 o'clock in the morning on 04/26/2017. At that time, the patient was admitted with colic with a stone and other abdominal pain. There is some issue about the pancreas. Since the patient's initial admission, she got two CAT scans of the abdomen and pelvis. Apparently, there is no pancreatic mass, but; however, there is a stable lesion that has been there previously seen, but they do recommend followup and it is less likely be any malignancy, but from urology standpoint, I spoke to the patient at that time, the patient was having intermittent pain, was apparently feeling better and the plan was to discharge. Then, subsequently, this is on 04/26/2017, I did not hear back from anybody in the hospital; on 04/26/2017, in the evening hours, I had the patient on cell phone and we spoke on 04/26/2017. On 04/27/2017, in the evening hours, I called the patient to see how she was doing, just to inquire how she was doing and then also to make arrangements for followup in my office. At that time, she alerted me that she is going to the hospital and apparently the pain was getting worse than had previously, and I discussed this on the phone, she previously had a stone that she passed herself after two or three days. At this point, she felt that this was not happening and she was very worried and she wanted some treatment. I explained to her that we will make arrangements for tomorrow as early as possible and see the plans listed below. PAST MEDICAL AND SURGICAL HISTORY: Essentially unremarkable. No history of [place] or CVA. She has underlying hypertension. Patient of Dr. Parks, who is her routine outpatient doctor. [place] HISTORY: She is currently what she says going through changes. She does not have periods monthly, but she still does get them on a regular basis, sometimes twice a month, sometimes not at all. She is under the care of [facility]. REVIEW OF SYSTEMS: As above. MEDICATIONS: See chart. ALLERGIES: NO ALLERGIES. PHYSICAL EXAMINATION: GENERAL: She is well-nourished female, in no apparent distress. VITAL SIGNS: Within normal limits. She currently is actually fairly uncomfortable in the rcarrie. See the point listed below. The remainder of the examination, we need to wait till the time of cysto. No pelvic exam is done now. LABORATORY DATA: White count, BUN, creatinine, CT scan, etc. all noted. DIAGNOSES: Urolithiasis, hematuria, renal colic, now getting worse over the last couple of days. She has nausea. I discussed options with the patient. I explained our plans, recommendations. We are going to re-stent the patient today. An emergency add on, we are going to try because especially because it has been prolonged period, we will do our best to do ureteroscope and laser the stone. It may be a little bit too high up to basket it. I explained to the patient the risk of perforation, the risk of basketing, the risk of laser. All the different options were explained to the patient. PLAN: As follows: 1. The patient will be brought to the OR as urgently as possible. 2. Antibiotic prophylaxis as ordered, Rocephin. We are going to add gentamicin. 3. Plan for cystourethroscope and if we can laser lithotripsy and/or stone basket and then incised location etc., and then further plans were explained to the patient, the risks and the benefits and although unlikely. I also explained apologetically about the general circumstances and any possible delay in care. So, the plan for now is as follows: The patient has been n.p.o. The patient is going to the OR now and then further plans will follow. Make an addendum to this consult note. Thank you for the urology consult. See the operative report. The patient will be treated with cystourethroscopy, laser lithotripsy, but the stone fragment quickly migrated up while there was some difficulty with the laser machine. Then, afterwards, when we were trying to josé the stone with the flexible scope, it became more difficult. Therefore, safety was first on our mind, so what we did was replace the cysto and a stent and we drained the bladder, and we will wait for the patient to feel better and then we will subsequently go back and provide either shockwave lithotripsy or ureteroscopy laser lithotripsy, but my recommendation in this particular patient is definitely going to be for a shockwave lithotripsy. Thank you for the urology consultation. Erich Young MD
[2017-04-29 04:44] VITALS: RESP 20; TEMP 98; O2SAT 98
[2017-04-29] MEDS: Levothyroxine 100 MCG TAB PO SCH (05:47)
[2017-04-29 06:54] LABS: MEAN CELL VOLUME 95.1 fl (80.0-105.0); MEAN CORPUSCULAR HEMOGLOBIN 30.4 pg (25.0-35.0); MEAN PLATELET VOLUME 8.6 fl (7.0-11.0); RED CELL DISTRIBUTION WIDTH 14.2 % (11.5-14.5)
[2017-04-29 07:57] VITALS: PULSE 58
--- NOTE | 2017-04-29 08:20 | RAD ---
PROCEDURE: Fluoroscopy up to 1 hour HISTORY: RETROGRADE PYELOGRAM / LASER LITHOTRIPSY / STENT INSERTION (LEFT) COMPARISON: TECHNIQUE: Fluoroscopy was provided in the operating room. 93 seconds of fluoro time. 19 images were submitted. FINDINGS: The study shows wires and instruments in the left ureter with placement of a left ureteral stent IMPRESSION: As above
[2017-04-29 08:25] LABS: ALB/GLOB RATIO 1.2 (1.1-1.8); ALKALINE PHOSPHATASE 53 U/L (38-126); ALT/SGPT 26 U/L (7-56); AST/SGOT 23 U/L (14-36); BILIRUBIN,TOTAL 0.3 mg/dL (0.2-1.3); BLOOD UREA NITROGEN 12 mg/dL (7-21); CALCIUM 8.7 mg/dL (8.4-10.5); CARBON DIOXIDE 29 mmol/L (21-33); CHLORIDE 106 mmol/L (98-107); GFR AFRICAN-AMERICAN > 60; GLUCOSE,RANDOM 90 mg/dL (70-110); POTASSIUM 4.8 mmol/L (3.6-5.0); SODIUM 141 mmol/L (132-148)
--- NOTE | 2017-04-29 09:44 | CARD ---
APPROVED REPORT EKG Measurement Heart [id number] 138P [id number] <Conclusion> Normal sinus rhythm Normal ECG
[2017-04-29] MEDS: cefTRIAXone 1 gm 1 GM/100 ML BAG IVPB SCH (10:10)
[2017-04-29] MEDS: SYMBICORT IH SCH ×2 (10:10→15:56)
[2017-04-29] MEDS: Fluticasone Nasal 50 mcg/Spray NS SCH (10:11)
[2017-04-29 10:23] VITALS: BP 125/78
[2017-04-29] MEDS: Oxycodone/Acetaminophen 5/325 mg Tab PO PRN (10:26)
--- NOTE | 2017-04-29 10:48 | OP ---
PROCEDURE DATE: 04/28/2017 UROLOGY OPERATIVE REPORT See the history and physical and consultation, see the below indications for further details. PREOPERATIVE DIAGNOSES: Urolithiasis, renal colic, hydronephrosis, hematuria, abdominal pain, flank pain. POSTOPERATIVE DIAGNOSES: Urolithiasis, renal colic, hydronephrosis, hematuria, abdominal pain, flank pain. PROCEDURES PERFORMED: Examination under anesthesia, cystoscopy, left retrograde pyelogram, left ureteroscopy, left laser lithotripsy of a stone, an attempted flexible ureteroscope. Insertion of a left double-J stent with dangles. ESTIMATED BLOOD: Less than 25 mL. There were no complications. At the termination of the procedure, the patient most likely still has most of her stones. See the detailed report. OPERATIVE FINDINGS: The bladder mucosa is within normal limits. The ureteral orifice is within normal limits and there are no bladder tumors. There is, on the KUB, what looks like maybe a distal ureteral stone, but exact that is not a stone, it is a calcification in the pelvis. When we have the ureteroscope and we take further imaging, it is not in place. Instead, the stone is much more proximal, and in fact, I have nice pictures with documentation for the stone in the more proximal ureter about the level of L3, which was expected. We were hoping for the stone to have progressed. However, the procedure was done very well, so we in fact found the stone and we have tried performing laser lithotripsy. See the body of the report for the details. However, subsequently after performing ureteroscopy and laser lithotripsy, the stone migrated. I have signified the details when and where the stone migrated specifically more proximal into the kidney. We have been chased it with the scope once the laser was working with the rigid ureteroscope and then even attempted with a flexible scope, but at the termination of the procedure, most likely the stone was up in the kidney region. A good double-J stent is in good location and there were no complications. INDICATIONS FOR THE PROCEDURE: See the consultation for further details. INDICATIONS: A very pleasant lady. She actually, by face, she presented on 04/24/2017, with abdominal pain. I first received the phone call on 04/26/2017 about 8 a.m., and at that time, I spoke to the patient directly myself after having spoken with the nurse and got some further details, she presented with a 5-mm stone. This was Friday about 8 a.m., I spoke to the patient directly and the plan at that time was for the patient to be discharged home. Subsequently, I did not receive any followup phone call. I called the patient Friday at about 9 p.m. just to arrange for an appointment for today on 04/28/2017. This was Friday04/27/2017, I made arrangements with calling patient on her cell phone, which she had called me from her cell phone to make arrangement for an office appointment for followup and see how she was doing. At that time, she claims that she was still in the hospital, still having abdominal pain. I spoke to the patient immediately and explained to her that our recommendations and plan have to basically finding out further details that she is still in the hospital, if that we will arrange for today's above listed procedure, that we will do out best to take care of the stone. What is minimal is we will get a stent in. The name of the procedure should be examination of cystoscopy, left retrograde pyelogram, left ureteroscopy, laser lithotripsy, and ureteroscopy with a semirigid and attempted flexible ureteroscope. Laser lithotripsy and insertion of left double-J stent. PROCEDURE: Prior to the procedure, I explained the patient our plans, our risks, benefits, and alternatives. We discussed the risk of perforation. We discussed the risk of infection. We also discussed the goal of trying to make the patient and render stent-free. I explained about baskets. I explained about lasers. I explained at least that we are planning to put a stent in, but I would make my best effort and in fact we did. See the body of the report. DESCRIPTION OF PROCEDURE: After the patient was brought to the OR, placed on the table, routine monitor was placed. Time-out was called to confirm the patient's positioning. Anesthesia was provided. The patient was already on Rocephin. We gave an extra dose of gentamicin. The patient was in lithotomy position, prepped in usual sterile fashion. was performed, basically shows what looks like a calcification, but this is not within the ureter. We performed cystoscope. We put a wire up to the kidney. Once we did this, we then went in with a second wire and a rigid ureteroscope. (I told the patient, I will do as much as possible safely and was all going smoothly and well). At this point, we had a wire up to the kidney. All this was caught with imaging. I saved the imaging. I was able to introduce the semirigid ureteroscope using a second wire dilating the distal ureteral orifice. I just put the scope itself and got to the more proximal around the level of L3 and then I had the pictures with the fluoroscopic imaging and also the camera imaging where I am on the stone. At this point, the laser fiber was passed to me. We used a 0.375 fiber. Then I am right on the stone. The laser was warming up, we were prepared in [facility], we introduced special laser nurse, all available. In the middle of working, after just a few joules, we started with an energy level of 2 joules with a frequency of about 3. After working just for a few seconds, the machine broke, it said error code 3 or 4 like, but the laser nurse explained that the machine was not warming up and it just shut itself off. We had pictures taken where there was little indentation to the stone where the beginning of the stone breaking, but there is still a fairly large stone present. In fact, later on, I had pictures also of the really little fragments from the stone up and down the ureter. While waiting for the machine to warm up again, again they unplugged the machine and the designated laser nurse also called second engineering inspection assistant came in to assist with the laser management and while this was happening and we directly on with the water not running. Just, I am able to visualize the stone, all of a sudden as I am looking and just waiting for the machine to warm the stone, migrates proximally. I wait for the laser works before I go josé further. In warms up, etc, and it is just taking a long period of time, but we subsequently returned the water bag on and we traced up to the kidney. We go all the way to the renal pelvis, I am very-very far up with the rigid scope. I do not see any stone. I go up and down, maybe the stone moves down. I can see the fragments from what I did, but I do not see a stone. At this point, pictures were taken and saved. I put a second wire and then I tried to do it with a flexible scope. I also injected contrast again, maybe we could see with which calyx to go into. I go up and down the ureter in an effort perhaps, we will see the stone is migrated distally, but I do not ever identify the stone. There is a chance that it is on the proximal, I can get a second wire, but I cannot get a second scope. These pictures were taken and saved. I tried gently, but vigorously without doing any perforations. We could see the dilated films of the flexible ureteroscope that has bending just above the iliac crest. For some reason, it just caught on some kind of lip, whatever it is, we were not able to use the [facility] flexible ureteroscope, it just would not advance even doing it over the wire and having 2 wires in and having previously did, but I do not want to push at this point further. So at this point, with a wire up in the kidney, put a double-J stent in and then emptied the bladder. The patient tolerated the procedure well without complications. We confirmed our positioning. Exam of anesthesia revealed normal external genitalia. No pelvic or rectal masses. ADDENDUM: So, we performed the above procedure and the urology plans will be as follows. I will get a followup x-ray, but I have not the patient screen of the urine because perhaps now we have made it just small enough perhaps that it could pass with a stent and maybe it will pass. It is definitely started about 5 to 6 mm, maybe it has gotten down to 4. Maybe with a stent, it will be dilated enough and the ureteroscope in the dilation. So, we will aggressively try to strain the urine. We will get a followup x-ray and then see how the patient does clinically. So, the plan is as above, and if this does not work, then we will plan for shockwave lithotripsy and then further plans will follow or we will plan for a ureteroscopy laser lithotripsy. Further plans to follow. Erich Young MD
--- NOTE | 2017-04-29 13:00 | CP.PCM.PN ---
Subjective - Date & Time of Evaluation Date of Evaluation: 04/29/17 Time of Evaluation: 09:40 - Subjective Subjective: Seen and examined at the bedside earlier today, the chart was reviewed. Patient status post lithotripsy yesterday, the patient does report some hematuria, but improved, denies nausea, vomiting, abdominal pain has improved. She does report having formed BM, no reports of any bleeding per rectum.space tolerating oral intake. Objective - Vital Signs/Intake and Output Vital Signs (last 24 hours): Temp Pulse Resp BP Pulse Ox 98.0 F 58 L 20 125/78 98 04/29/17 07:30 04/29/17 07:30 04/29/17 07:30 04/29/17 10:12 04/29/17 07:30 Intake and Output: 04/29/17 04/29/17 06:59 18:59 Intake Total 3720 Output Total 4 Balance 3716 - Medications Medications: Current Medications Albuterol/Ipratropium (Duoneb 3 Mg/0.5 Mg (3 Ml) Ud) 3 ml IH [id number] PRN PRN Reason: Shortness of Breath Amlodipine Besylate (Norvasc) 10 mg PO DAILY [facility] Last Admin: 04/29/17 10:12 Dose: 10 mg Famotidine (Pepcid) 40 mg PO HS [facility] Last Admin: 04/28/17 21:24 Dose: 40 mg Fluticasone Propionate (Flonase) 1 actuation NS DAILY [facility] Last Admin: 04/29/17 10:11 Dose: 1 spray Gabapentin (Neurontin) 400 mg PO TID [facility] PRN Reason: Protocol Last Admin: 04/29/17 10:20 Dose: 400 mg Gabapentin (Neurontin) 100 mg PO TID [facility] PRN Reason: Protocol Last Admin: 04/29/17 10:12 Dose: 100 mg Home Med (Home Med) 0 unit IH TID [facility] Last Admin: 04/29/17 10:10 Dose: 1 unit Home Med (Home Med) 0.5 unit PO MON [facility] Last Admin: 04/28/17 09:21 Dose: 0.5 unit Home Med (Home Med) 0.5 unit PO FRI [facility] Hydrochlorothiazide (Microzide) 12.5 mg PO DAILY [facility] Last Admin: 04/29/17 10:20 Dose: 12.5 mg Hydromorphone HCl (Dilaudid) 0.5 mg IVP Q6H PRN PRN Reason: Pain, severe (8-10) Last Admin: 04/28/17 12:50 Dose: 0.5 mg Ceftriaxone Sodium (Rocephin 1 Gram Ivpb) 1 gm in 100 mls @ 200 mls/hr IVPB DAILY [facility] PRN Reason: Protocol Last Admin: 04/29/17 10:10 Dose: 200 mls/hr Levothyroxine Sodium (Synthroid) 100 mcg PO 0600 [facility] Last Admin: 04/29/17 05:47 Dose: 100 mcg Loratadine (Claritin) 10 mg PO DAILY [facility] Last Admin: 04/29/17 10:12 Dose: 10 mg Montelukast Sodium (Singulair) 10 mg PO DAILY [facility] Last Admin: 04/29/17 10:20 Dose: 10 mg Oxycodone/Acetaminophen (Percocet 5/325 Mg Tab) 1 tab PO Q6H PRN PRN Reason: Bladder Spasm Stop: 05/01/17 16:47 Last Admin: 04/29/17 10:26 Dose: 1 tab Tamsulosin HCl (Flomax) 0.4 mg PO DAILY [facility] Last Admin: 04/29/17 10:19 Dose: 0.4 mg Tizanidine HCl (Zanaflex) 4 mg PO HS [facility] Last Admin: 04/28/17 21:24 Dose: 4 mg - Labs Labs: 04/29/17 06:39 04/29/17 06:39 PT 9.8 Seconds (9.9-11.8) L 04/24/17 10:40 INR 0.91 (0.93-1.08) L 04/24/17 10:40 APTT 24.9 Seconds (23.7-30.8) 04/24/17 10:40 - Constitutional Appears: No Acute Distress - Head Exam Head Exam: NORMOCEPHALIC - Eye Exam Eye Exam: Normal appearance. absent: Scleral icterus - ENT Exam ENT Exam: Mucous Membranes Moist - Neck Exam Neck Exam: Normal Inspection - Respiratory Exam Respiratory Exam: NORMAL BREATHING PATTERN. absent: Respiratory Distress - Cardiovascular Exam Cardiovascular Exam: +S1, +S2 - GI/Abdominal Exam GI & Abdominal Exam: Soft, Normal Bowel Sounds. absent: Guarding, Tenderness, Organomegaly, Rebound - Extremities Exam Extremities Exam: Normal Capillary Refill. absent: Calf Tenderness, Pedal Edema Assessment and Plan - Assessment and Plan (Free Text) Assessment: Assessment: Abnormal CT scan: Tissue density noted and the pancreatic tail more prominent compared to CT scan 10/21/2013 Status post cystoscopy with lithotripsy for5 mm obstructing calculus utero pelvic junctionwith mild left hydronephrosis Gastroenteritis Heartburn Obesity Hypertension History of renal stones Hypothyroidism Plan: diet as tolerated Continue GI prophylaxis on ceftriaxone Urology follow-up DVT prophylaxis Discussed findings on CT scan pancreatic protocol, probable prominent lobulation of the pancreatic tail are unchanged in size compared to exam of September/2013. Less likely this represents a splenule, a developmental variant. Low suspicion for pancreatic neoplasm given the lack of interval change. Advise follow-up. May choose to FU in our office, if conflict w/insurance will refer to [facility] or choice of PCP referral. Patient stated understanding. Seen and discussed with Dr. Damon.
--- NOTE | 2017-04-30 01:07 | CARD ---
APPROVED REPORT EKG Measurement Heart [id number] NM [id number] <Conclusion> Normal sinus rhythm Normal ECG
[2017-05-02] MEDS ORDERED: CABERGOLINE 0.5 MG PO SCH (10:00)
== END 2017-04-29 16:19 | disposition home or self-care (01) | DRG 669 ==
LOC: ED 09:43 → ERH 15:11 → 5RNO 18:34
PROVIDERS: ADMIT Internal Medicine; ATTEND Internal Medicine
PROC: 0T778DZ Dilation of Left Ureter with Intraluminal Device, Via Natural or Artificial Opening Endoscopic (ICD-10-PCS; 2017-04-28)
PROC: BT1F1ZZ Fluoroscopy of Left Kidney, Ureter and Bladder using Low Osmolar Contrast (ICD-10-PCS; 2017-04-28)
PROC: 0TC78ZZ Extirpation of Matter from Left Ureter, Via Natural or Artificial Opening Endoscopic (ICD-10-PCS; principal; 2017-04-28 13:00)
DX: N13.2 Hydronephrosis with renal and ureteral calculous obstruction (principal); Z68.41 Body mass index [BMI] 40.0-44.9, adult; I10 Essential (primary) hypertension; J44.9 Chronic obstructive pulmonary disease, unspecified; E03.9 Hypothyroidism, unspecified; K21.9 Gastro-esophageal reflux disease without esophagitis; G89.29 Other chronic pain; M54.16 Radiculopathy, lumbar region; G47.33 Obstructive sleep apnea (adult) (pediatric); K52.9 Noninfective gastroenteritis and colitis, unspecified; D64.9 Anemia, unspecified; M54.30 Sciatica, unspecified side; E66.9 Obesity, unspecified; Z87.442 Personal history of urinary calculi; Z98.51 Tubal ligation status

== ENCOUNTER 2018-03-18 19:32 | Observation (INO) | payer MEDICARE, MEDICAID ==
[2018-03-18] MEDS ORDERED: Albuterol 0.083% Inhal Sol (2.5 mg/3 mL) UD INH STA ×2 (19:46→20:32)
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
[2018-03-18 21:14] LABS: BASO # 0.04 K/mm3 (0.0-2.0); BASO % 0.5 % (0.0-3.0); EOS # 0.1 (0.0-0.7); GRAN # 4.95 (1.4-6.5); GRAN % 55.7 % (50.0-68.0); HEMOGLOBIN 12.6 g/dL (12.0-16.0); LYMPH # 3.4 (1.2-3.4); LYMPH % 38.5 % (22.0-35.0); MEAN CELL VOLUME 91.1 fl (80.0-105.0); MEAN CORPUSCULAR HEMOGLOBIN 30.2 pg (25.0-35.0); MEAN CORPUSCULAR HGB CONC 33.2 g/dl (31.0-37.0); MEAN PLATELET VOLUME 9.3 fl (7.0-11.0); MONO # 0.4 (0.1-0.6); MONO % 4.3 % (1.0-6.0); RBC 4.17 10^6/uL (3.5-6.1); RED CELL DISTRIBUTION WIDTH 13.1 % (11.5-14.5); WHITE BLOOD COUNT 8.9 10^3/ul (4.5-11.0)
[2018-03-18 21:24] LABS: ALB/GLOB RATIO 1.4 (1.1-1.8); ALBUMIN 4.5 g/dL (3.0-4.8); ALT/SGPT 29 U/L (7-56); AST/SGOT 31 U/L (14-36); BLOOD UREA NITROGEN 16 mg/dL (7-21); CALCIUM 9.2 mg/dL (8.4-10.5); GFR NON-AFRICAN AMERICAN > 60
[2018-03-18 21:31] LABS: URINE BILIRUBIN NEGATIVE (NEGATIVE); URINE BLOOD NEGATIVE (NEGATIVE); URINE GLUCOSE (UA) NEGATIVE (NEGATIVE); URINE LEUKOCYTE ESTERASE NEGATIVE Leu/uL (NEGATIVE); URINE PROTEIN TRACE mg/dL (<30 mg/dL); URINE UROBILINOGEN 0.2 E.U./dL (<1 E.U./dL)
[2018-03-18 21:32] LABS: URINE APPEARANCE CLEAR (CLEAR); URINE COLOR YELLOW (YELLOW)
[2018-03-18 21:36] LABS: B-TYPE NATRIURETIC PEPTIDE 230 pg/mL (0-450); TROPONIN I < 0.01 ng/mL
[2018-03-18 22:30] LABS: URINE BACTERIA MANY (NEG); URINE RBC 0 - 2 /hpf (0-2); URINE WBC 0 - 2 /hpf (0-6)
[2018-03-18] MEDS ORDERED: Albuterol 0.083% Inhal Sol (2.5 mg/3 mL) UD IH PRN (23:40)
[2018-03-19] MEDS: Albuterol-Ipratrop 3 mg / 0.5 (3 ml) UD IH SCH ×4 (01:33→19:35)
[2018-03-19 03:26] VITALS: BMI 40.1
[2018-03-19] MEDS ORDERED: Pneumococcal 23-Valent Vaccine IM ONE (03:26)
[2018-03-19] MEDS: Levothyroxine 100 MCG TAB PO SCH (05:22)
[2018-03-19 06:49] LABS: IRON 62 ug/dL (45-180)
[2018-03-19 06:59] LABS: % IRON SATURATION 19 % (20-55); TOTAL IRON BINDING CAPACITY 326 ug/dL (265-497)
[2018-03-19 07:08] LABS: TROPONIN I < 0.01 ng/mL
[2018-03-19 07:18] LABS: BLOOD UREA NITROGEN 11 mg/dL (7-21); CALCIUM 8.9 mg/dL (8.4-10.5); GFR NON-AFRICAN AMERICAN > 60
[2018-03-19 07:24] LABS: CK-MB 0.9 ng/mL (0.0-3.6)
[2018-03-19] MEDS ORDERED: Ergocalciferol 50,000 Intl Units Cap PO SCH (07:45)
--- NOTE | 2018-03-19 08:10 | CT ---
Date of service: 03/18/2018 PROCEDURE: CT HEAD WITHOUT CONTRAST. HISTORY: headache COMPARISON: None available. TECHNIQUE: Axial computed tomography images were obtained through the head/brain without intravenous contrast. Radiation dose: Total exam DLP = 906.04 mGy-cm. This CT exam was performed using one or more of the following dose reduction techniques: Automated exposure control, adjustment of the mA and/or kV according to patient size, and/or use of iterative reconstruction technique. FINDINGS: HEMORRHAGE: No intracranial hemorrhage. BRAIN: Normal saldaña-white matter differentiation and density are appreciated throughout the cerebrum and cerebellum with the brainstem appearing unremarkable as well. There is no mass effect. There is no suspicious extra-axial fluid collection and the midline brain anatomy appears diffusely unremarkable. VENTRICLES: Unremarkable. No hydrocephalus. CALVARIUM: Unremarkable. PARANASAL SINUSES: Unremarkable as visualized. No significant inflammatory changes. MASTOID AIR CELLS: Unremarkable as visualized. No inflammatory changes. OTHER FINDINGS: None. IMPRESSION: Unremarkable noncontrast CT of the Head. Concordant preliminary report from [facility], 03/18/2018.
[2018-03-19 08:22] VITALS: RESP 20
--- NOTE | 2018-03-19 09:19 | RAD ---
Date of service: 03/18/2018 HISTORY: sob COMPARISON: 04/24/2017 FINDINGS: LUNGS: No active pulmonary disease. PLEURA: No significant pleural effusion identified, no pneumothorax apparent. CARDIOVASCULAR: Normal. OSSEOUS STRUCTURES: No significant abnormalities. VISUALIZED UPPER ABDOMEN: Normal. OTHER FINDINGS: None. IMPRESSION: No active disease.
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
[2018-03-19] MEDS: Meloxicam 7.5 MG TAB PO SCH ×2 (09:50→17:21)
[2018-03-19] MEDS: Budesonide/Formoterol Fumarate [Symbicort 160-4.5 Mcg Inhaler] (HOME MED) IH SCH ×3 (09:51→18:49)
[2018-03-19] MEDS ORDERED: Fluticasone Nasal 50 mcg/Spray NS SCH (10:00)
[2018-03-19] MEDS ORDERED: Budesonide/Formoterol Fumarate [Symbicort 160-4.5 Mcg Inhaler] (HOME MED) IH SCH (10:00)
[2018-03-19] MEDS ORDERED: Fluticasone Nasal 50 mcg/Spray NAS SCH (10:00)
[2018-03-19 12:34] LABS: FOLATE > 20.0 ng/mL
--- NOTE | 2018-03-19 19:28 | CARD ---
APPROVED REPORT Date of service: 03/18/2018 EKG Measurement Heart [id number] <Conclusion> Normal sinus rhythm Possible Left atrial enlargement Borderline ECG
--- NOTE | 2018-03-19 20:35 | CON ---
Copied To: Nilson Garcia MD Attending MD: Nilson Garcia MD DATE: 03/19/2018 HISTORY OF PRESENT ILLNESS: This is a 42-year-old female with past medical history of asthma and panic attacks who came to the emergency room with shortness of breath and also felt left-sided swelling and generalized myalgia for the last couple of days and the primary MD sent her to ER for further evaluation. PAST MEDICAL HISTORY: Asthma and panic attacks and also low back pain, sciatic pain and hypothyroidism. ALLERGIES: NO KNOWN DRUG ALLERGIES. PHYSICAL EXAMINATION: VITAL SIGNS: Blood pressure 104/69. HEENT: Normocephalic and atraumatic. NECK: Supple. NEUROLOGIC: Awake, alert and oriented to self. Cranial nerves II through XII were tested. Pupils reactive. EOM intact. Visual field full. No facial asymmetry. Tongue is midline. Motor examination: Moves all extremities equally. Tone normal. Deep tendon reflexes 1+. Both plantars are downgoing. Sensory appears intact. Cerebellar gait deferred. LABORATORY DATA: WBC 8.9, hemoglobin 12.6, hematocrit 38, platelet 281. Sodium 144, potassium 4, chloride 106, CO2 of 27, glucose 100, BUN 16, creatinine 0.9. IMPRESSION: A 42-year-old presented to the emergency room with swelling and generalized myalgia and called to evaluate the patient for possible transient ischemic attack workup. CAT scan of the head was done, which was reported negative. PLAN: Continue present management. We will follow up. Nilson Garcia MD
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
--- NOTE | 2018-03-19 23:56 | CON ---
Copied To: Evelia Shaw MD Attending MD: Evelia Shaw MD DATE: 03/19/2018 PULMONARY CONSULT REFERRING PHYSICIAN: Neyda Parks MD. REASON FOR CONSULT: Sleep apnea syndrome, obesity. HISTORY OF PRESENT ILLNESS: This is a 42-year-old female, known to me from the office, was noncompliant with CPAP, may became unqualify on CPAP once returned. Does have a history of asthma, panic attack, migraine headache. Comes in with shortness of breath, severe headache, weakness. No nausea. N vomiting, diarrhea, leg pain or leg swelling reported. PAST MEDICAL HISTORY: Obstructive sleep apnea syndrome, hypertension, asthma, hypothyroid. ALLERGIES: NONE KNOWN. MEDICATIONS: She is on albuterol and Atrovent nebulizer every 6 hours p.r.n., also getting Symbicort 2 sprays twice a day, also on cabergoline home meds twice a day, Claritin 10 mg daily, trazodone 25 mg daily, vitamin D 50,000 units every 7 days, albuterol and Atrovent nebulizer every 6 hours [id number], Flonase 1 spray each nostril daily, hydrochlorothiazide 12.5 mg daily, Mobic 7.5 mg twice a day, gabapentin 100 mg three times a day, Norvasc 10 mg daily, Pepcid 40 mg at bedtime, Singulair 10 mg at bedtime, Synthroid 100 mcg daily, Ultram 50 mg p.o. every 8 hours p.r.n. REVIEW OF SYSTEMS: On and off headache, short of breath, chest tightness. No nausea. No vomiting. No diarrhea, leg pain, leg swelling. Admitted with loud snoring, daytime sleepy and tired. PHYSICAL EXAMINATION: VITAL SIGNS: Temperature is 98, heart rate is 66, respiratory rate is 20, blood pressure 100/55, pulse ox 95% on room air. HEENT: Moist mucous membrane. Crowded airway. Mallampati score is 4. NECK: Supple. No JVD. LUNGS: Have a fair airflow with rhonchi. HEART: S1 and S2. ABDOMEN: Soft and nontender. No organomegaly. EXTREMITIES: No edema. NEUROLOGICAL: Awake and alert. Follows simple command. LABORATORY DATA: Shows hemoglobin 12.6, hematocrit 38, WBC 8.9, platelet is 281. D-dimer is less than 200. Sodium 142, potassium 3.7, chloride 107, bicarbonate 26, BUN 11, creatinine 0.7, glucose 95, hemoglobin A1c 5.2, iron 62, TIBC 326, LDH 539, total creatine kinase 230, TSH is 4.76, folate more than 20, vitamin B12 744, proBNP 230. Has a CAT scan of the chest done on admission yesterday, which was unremarkable. Had a chest x-ray done, which shows no active disease. IMPRESSION AND PLAN: Obstructive sleep apnea syndrome, morbid obesity, panic attacks versus agoraphobia or posttraumatic stress disorder, asthma, hypertension, degenerative joint disease, hypothyroid. Spoke to nursing staff and the patient started on continuous positive airway pressure 30% oxygen while sleeping. Keep head at 45 degrees. Careful with sedation. Psychiatry and Neurology followup. Will need attentive sleep study upon discharge as outpatient to requalify for continuous positive airway pressure. We will add sequential compression device to lower extremity. She is already on DVT prophylaxis. Thank you and we will follow with you. Evelia Shaw MD
[2018-03-20] MEDS: Albuterol-Ipratrop 3 mg / 0.5 (3 ml) UD IH SCH ×2 (01:29→07:43)
[2018-03-20] MEDS: Levothyroxine 100 MCG TAB PO SCH (05:46)
[2018-03-20 06:31] LABS: IRON 52 ug/dL (45-180)
[2018-03-20 06:32] LABS: BLOOD UREA NITROGEN 13 mg/dL (7-21); CALCIUM 9.3 mg/dL (8.4-10.5); GFR NON-AFRICAN AMERICAN > 60; HDL CHOLESTEROL 50 mg/dL (29-60)
[2018-03-20 06:40] LABS: % IRON SATURATION 16 % (20-55); TOTAL IRON BINDING CAPACITY 319 ug/dL (265-497)
[2018-03-20 06:43] LABS: LDL CHOLESTEROL 113 mg/dL (0-129)
[2018-03-20 06:47] LABS: HEMOGLOBIN 12.6 g/dL (12.0-16.0); MEAN CORPUSCULAR HEMOGLOBIN 29.9 pg (25.0-35.0); MEAN CORPUSCULAR HGB CONC 33.2 g/dl (31.0-37.0); MEAN PLATELET VOLUME 9.4 fl (7.0-11.0); RBC 4.21 10^6/uL (3.5-6.1); RED CELL DISTRIBUTION WIDTH 13.2 % (11.5-14.5)
[2018-03-20 07:00] VITALS: PULSE 56; TEMP 98; O2SAT 100
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
--- NOTE | 2018-03-20 07:53 | HP ---
Copied To: Neyda Parks MD Attending MD: Neyda Parks MD CHIEF COMPLAINT: Shortness of breath, left-sided chest pain, left-sided body is heavy. HISTORY OF PRESENT ILLNESS: Ms. Edilma Patrick is a 42-year-old my private patient with history of asthma and panic attacks, came in my office with the complaints of pain in the left side of the chest, shortness of breath, left side of the body is heavy, and she is like depressed, then I sent the patient to [facility] Emergency Room. The patient was advised from my office to go to emergency room. The patient reports bruising of the upper and lower extremities, palpitations and dizziness. The patient reports to be under lots of emotional stress lately. I saw the patient in her room, seen by the psychiatrist, Dr. Darcy Munson. PAST MEDICAL HISTORY: Hypertension, kidney stones, hypothyroidism, sections 3. HABITS: Never smoked. No drugs. No ethanol. FAMILY HISTORY: Father and mother, noncontributory. ALLERGIES: THE PATIENT IS NOT ALLERGIC WITH ANY MEDICATIONS. HOME MEDICATIONS: Ventolin, Symbicort, cetirizine, vitamin D, Neurontin, hydrochlorothiazide, meloxicam, Singulair, oxycodone, Norvasc and Zanaflex. REVIEW OF SYSTEMS: The patient was seen and examined at the bedside, looking comfortable. According to her, chest pain is better. Left side of the body is getting light. Shortness of breath is better. No fever. No chills. Still feeling palpitation. PHYSICAL EXAMINATION: VITAL SIGNS: Temperature 98, pulse 80 , respiratory rate 17, blood pressure 104/69, pulse oximetry 98. HEENT: Head is normocephalic and atraumatic. Eyes, PERRLA. Extraocular muscles are intact. Conjunctivae are clear. Nose is patent. NECK: Supple. No carotid bruits. No JVD or thyromegaly. CHEST: Bilaterally symmetrical. HEART: S1 and S2 positive. LUNGS: Clear to auscultation. ABDOMEN: Soft. Bowel sounds present. No organomegaly. EXTREMITIES: No edema. No cyanosis. NEUROLOGIC: The patient is awake and alert. Moving all 4 extremities. No focal deficits. LABORATORY DATA: White blood cell is 8.9, hemoglobin 12.6, hematocrit 38, platelets 281. Sodium 144, potassium 4, BUN 16, creatinine 0.9, glucose 100. ASSESSMENT AND PLAN: Ms. Edilma Patrick is a 42-year-old lady, came with chest pain, shortness of breath, left side of the body is heavy, we admitted the patient to rule out transient ischemic attack. CAT scan of the head done, seen by Dr. Nilson Garcia. Generalized malaise, rule out transient ischemic attack. Called Dr. Garcia, continue present management. I reviewed Dr. Darcy Munson's notes. Length of time discussion done with her. She is planning to take the patient to the Psych because of patient's distressed situation and the patient also agreed after clearing from all physicians. Rule out major depressive disorder, rule out panic disorder with agoraphobia, rule out posttraumatic stress disorder as per psychiatrist. Seen by the bit shaver. GI and DVT prophylaxis given. History of hypothyroidism, asthma, history of panic attacks, hypertension, kidney stones. Repeat labs. We will follow. Neyda Parks MD AKIL
[2018-03-20] MEDS: Meloxicam 7.5 MG TAB PO SCH (09:26)
[2018-03-20] MEDS: Budesonide/Formoterol Fumarate [Symbicort 160-4.5 Mcg Inhaler] (HOME MED) IH SCH (09:27)
[2018-03-20 09:28] VITALS: BP 107/75
[2018-03-20 13:13] LABS: FOLATE 18.9 ng/mL
--- NOTE | 2018-03-20 14:14 | PN ---
Copied To: Evelia Shaw MD Attending MD: Evelia Shaw MD DATE: 03/20/2018 PULMONARY PROGRESS NOTE REFERRING PHYSICIAN: Neyda Parks MD SUBJECTIVE: The patient is out of bed to chair. Night was unremarkable. Tolerated CPAP well. Slept well last night after many months. No nausea. No vomiting. No diarrhea. No leg pain or leg swelling. OBJECTIVE: GENERAL: In no acute distress. VITAL SIGNS: Temperature is 98, heart rate 56, respiratory rate is 20, blood pressure 107/75, pulse ox 98% on room air. HEENT: Moist mucous membrane. Crowded airway. Mallampati score is 4. NECK: Supple. No JVD. LUNGS: Have a fair airflow with rhonchi. HEART: S1 and S2. ABDOMEN: Soft, nontender. No organomegaly. EXTREMITIES: No edema. NEUROLOGICAL: Awake and alert. Follows simple command. MEDICATIONS: She is on albuterol/Atrovent nebulizer every 6 hours p.r.n., also receiving Symbicort home medication, Claritin 10 mg daily, trazodone 25 mg at bedtime, vitamin D 50,000 units every 7 days, DuoNeb every 6 hours [id number], Flonase once to each nostril daily, hydrochlorothiazide 12.5 mg daily, Mobic 7.5 mg twice a day, gabapentin 100 mg three times a day, Norvasc 10 mg daily, Pepcid 40 mg at bedtime, Singulair 10 mg daily, Synthroid 125 mcg daily, Ultram 50 mg every 8 hours p.r.n. LABORATORY DATA: Shows hemoglobin 12.6, hematocrit is 37.9, WBC 8, platelet is 274. Sodium 142, potassium 4.1, chloride 105, bicarbonate 26, BUN 13, creatinine 0.8, glucose is 90, hemoglobin A1c 5.2, iron is 52, triglyceride 175, cholesterol is 210. TSH is 10.1. IMPRESSION AND PLAN: Obstructive sleep apnea syndrome, morbid obesity, panic attack versus agoraphobia or post-traumatic stress disorder, asthma, hypertension, degenerative joint disease, hypothyroid. The patient slept very well with the CPAP overnight. Being discharged home. We will requalify her for CPAP. May do separate study half apnea, half CPAP as outpatient. We will need PFT as outpatient. Fall precaution, sleep apnea precaution, avoid sedation. Thank you and we will follow as outpatient. Evelia Shaw MD
--- NOTE | 2018-03-20 16:08 | PN ---
Copied To: Darcy Munson MD Attending MD: Darcy Munson MD DATE: 03/20/2018 SUBJECTIVE: The patient was followed up today. The patient presented much better to compare with yesterday. The patient was less tearful. The patient reported that she slept well on trazodone. The patient was willing to take that medication at home. The patient said that she has future oriented plans that her family is coming over this weekend. The patient did not see her granddaughters for a while and she is excited to see them. The patient reported that she has very restful night and she does not feel groggy. The patient is willing to participate in outpatient program. The patient was provided information about [facility] and Dr. Pollack's business hours. The patient denied any thoughts of harming herself or others. Denied intents or plan. The patient said that for the future references, if she would feel depressed and hopeless, she will bring herself back to the hospital. As per staff, the patient is compliant with the medication. No aggression, no agitation. The patient has verbalized thoughts of killing herself or others. The patient's vital signs are stable. Pulse is 56, temperature 98, blood pressure 107/75, respirations 20. Medications reviewed. The patient took trazodone yesterday 25 mg. Labs reviewed, most recent was from today within normal limits. Chemistry within normal limits. Urinalysis showed no infection. MENTAL STATUS EXAMINATION: The patient appears to be alert and oriented, pleasant, cooperative. Good eye contact. Speech was normal rate, tone, quality and quantity. Mood described, I feel much better. Affect was more reactive and mood congruent. Thought process was coherent and goal directed. Thought content, the patient denied visual, auditory, tactile hallucinations. Denied paranoid ideation. The patient adamantly denied thoughts of harming herself or others. Denied intent or plan. Insight and judgment seems to be improving. Impulses are well controlled. IMPRESSION: Most likely, the patient has major depressive disorder, moderate; no psychosis; history of posttraumatic stress disorder, rule out adjustment disorder, rule out mood disorder due to general medical condition. PLAN: The patient is willing to participate in outpatient program, trazodone prescriptions were provided to the patient, 2-week supply, one refill. The patient was educated about risks, benefits and alternatives of the medications. The patient pose no imminent danger to self or others. The patient contracted for safety. Thank you very much for letting me participate in care of your patient. Should you have any questions, give me a call back. Darcy Munson MD
[2018-03-21] MEDS ORDERED: Levothyroxine 125 MCG TAB PO SCH (06:00)
[2018-03-21] MEDS ORDERED: CABERGOLINE 0.5 MG PO SCH (10:00)
[2018-03-25] MEDS ORDERED: Ergocalciferol 50,000 Intl Units Cap PO SCH (07:45)
[2018-03-25] MEDS ORDERED: Cholecalciferol 1,000 INTLU TAB PO SCH (10:00)
== END 2018-03-20 13:02 | disposition home or self-care (01) ==
LOC: ED 19:32 → ERH 22:00 → 3RNO 23:05
PROVIDERS: ADMIT Internal Medicine; ATTEND Internal Medicine
DX: R07.9 Chest pain, unspecified (principal); M79.1 Myalgia; J45.909 Unspecified asthma, uncomplicated; G47.33 Obstructive sleep apnea (adult) (pediatric); E66.01 Morbid (severe) obesity due to excess calories; Z68.41 Body mass index [BMI] 40.0-44.9, adult; I10 Essential (primary) hypertension; E03.9 Hypothyroidism, unspecified; K21.9 Gastro-esophageal reflux disease without esophagitis; F41.0 Panic disorder [episodic paroxysmal anxiety]; F32.1 Major depressive disorder, single episode, moderate; M19.90 Unspecified osteoarthritis, unspecified site; E78.5 Hyperlipidemia, unspecified; Z87.442 Personal history of urinary calculi; Z91.410 Personal history of adult physical and sexual abuse; Z91.19 Patient's noncompliance with other medical treatment and regimen; Z79.51 Long term (current) use of inhaled steroids; Z87.891 Personal history of nicotine dependence
CPT/HCPCS: 36415; 70450; 71045; 80048; 80053; 80061; 81001; 82550; 82553; 82607; 82746; 83036; 83540; 83550; 83615; 83880; 84443; 84484; 85025; 85027; 85378; 93005; 94640; 94660; 97116; 97161; 99285; G0378; G8978; G8979; G8980

== ENCOUNTER 2018-07-30 13:50 | Emergency (ER) | payer MEDICARE, MEDICAID ==
[2018-07-30 14:02] VITALS: BMI 39.9
[2018-07-30 14:13] VITALS: RESP 18; TEMP 98.1
[2018-07-30] MEDS ORDERED: Albuterol-Ipratrop 3 mg / 0.5 (3 ml) UD IH STA (14:42)
--- NOTE | 2018-07-30 15:18 | RAD ---
Date of service: 07/30/2018 HISTORY: Cough COMPARISON: 03/18/2018. FINDINGS: LUNGS: The lungs are well inflated and clear. There is discoid atelectasis lower lobe. PLEURA: No pleural effusions or pneumothorax. CARDIOVASCULAR: The heart is normal in size. No aortic atherosclerotic calcification present. OSSEOUS STRUCTURES: Within normal limits for the patient's age. VISUALIZED UPPER ABDOMEN: Normal. OTHER FINDINGS: None. IMPRESSION: No active pulmonary disease.
[2018-07-30 15:45] LABS: BASO # 0.02 K/mm3 (0.0-2.0); BASO % 0.4 % (0.0-3.0); EOS # 0.1 (0.0-0.7); EOS % 0.9 % (1.5-5.0); GRAN # 3.33 (1.4-6.5); GRAN % 62.6 % (50.0-68.0); HEMOGLOBIN 12.1 g/dL (12.0-16.0); LYMPH # 1.6 (1.2-3.4); LYMPH % 29.7 % (22.0-35.0); MEAN CELL VOLUME 91.3 fl (80.0-105.0); MEAN CORPUSCULAR HEMOGLOBIN 29.3 pg (25.0-35.0); MEAN CORPUSCULAR HGB CONC 32.1 g/dl (31.0-37.0); MEAN PLATELET VOLUME 9.3 fl (7.0-11.0); MONO # 0.3 (0.1-0.6); MONO % 6.4 % (1.0-6.0); RBC 4.13 10^6/uL (3.5-6.1); RED CELL DISTRIBUTION WIDTH 13.9 % (11.5-14.5); WHITE BLOOD COUNT 5.3 10^3/uL (4.5-11.0)
[2018-07-30 15:53] LABS: ALB/GLOB RATIO 1.3 (1.1-1.8); ALBUMIN 4.2 g/dL (3.0-4.8); ALT/SGPT 39 U/L (7-56); AST/SGOT 41 U/L (14-36); BLOOD UREA NITROGEN 8 mg/dL (7-21); CALCIUM 9.1 mg/dL (8.4-10.5); GFR NON-AFRICAN AMERICAN > 60
--- NOTE | 2018-07-30 16:04 | ED PDOC ---
Arrival/HPI - General Chief Complaint: Shortness Of Breath Time Seen by Provider: 07/30/18 14:02 Historian: Patient - History of Present Illness Narrative History of Present Illness (Text): 07/30/18 16:01 43-year-old female presents today with a 2 day history of cough nasal congestion sore throat body aches and asthma exacerbation. Patient states she's been using her albuterol pump at home without improvement. She is complaining of subjective fevers and chills. She is complaining of sore throat and a dry cough with occasional mucus. She denies headaches dizziness or weakness no abdominal pain. She denies back pain. No other complaints Past Medical History - Provider Review Nursing Documentation Reviewed: Yes - Travel History Have you recently traveled outside [place] w/in the past 3 mons?: No - Infectious Disease Hx of Infectious Diseases: None - Tetanus Immunization Tetanus Immunization: Unknown - Cardiac Hx Hypertension: Yes - Pulmonary Hx Respiratory Disorders: Yes Hx Asthma: Yes Hx Chronic Obstructive Pulmonary Disease (COPD): Yes - Neurological Hx Neurological Disorder: Yes Other/Comment: sciatica - HEENT Hx HEENT Disorder: Yes (eyeglasses) - Renal Hx Renal Disorder: Yes Hx Kidney Stones: Yes - Endocrine/Metabolic Hx Endocrine Disorders: Yes Hx Hypothyroidism: Yes - Hematological/Oncological Hx Blood Disorders: No - Integumentary Hx Dermatological Disorder: No - Musculoskeletal/Rheumatological Hx Musculoskeletal Disorders: No - Gastrointestinal Hx Gastrointestinal Disorders: No - Genitourinary/Gynecological Hx Genitourinary Disorders: No - Psychiatric Hx Psychophysiologic Disorder: No Hx Substance Use: No - Surgical History Hx Section: Yes (x3) Hx Tubal Ligation: Yes - Anesthesia Hx Anesthesia: Yes Hx Anesthesia Reactions: No Hx Malignant Hyperthermia: No - Suicidal Assessment Feels Threatened In Home Enviroment: No Family/Social History - Physician Review Nursing Documentation Reviewed: Yes Family/Social History: Unknown Family HX Smoking Status: Never Smoked Hx Alcohol Use: Yes Frequency of alcohol use: Socially Hx Substance Use: No Hx Substance Use Treatment: No Allergies/Home Meds Allergies/Adverse Reactions: Allergies No Known Allergies Allergy (Verified 04/24/17 10:00) Home Medications: Home Meds Medication Instructions Recorded Confirmed Albuterol HFA [Ventolin HFA 90 2 puff IH [id number] PRN 04/24/17 04/09/18 mcg/actuation (8 g)] Budesonide/Formoterol Fumarate 2 aer IH TID 04/24/17 04/09/18 [Symbicort 160-4.5 Mcg Inhaler] Cabergoline 0.5 mg PO Q72 04/24/17 04/09/18 Fluticasone Propionate [Flonase] 1 spray ANJALI DAILY 04/24/17 04/09/18 Hydrochlorothiazide [Microzide] 12.5 mg PO DAILY 04/24/17 04/09/18 Levothyroxine [Synthroid] 100 mcg PO DAILY 04/24/17 04/09/18 Montelukast [Singulair] 10 mg PO DAILY 04/24/17 04/09/18 amLODIPine [Norvasc] 10 mg PO DAILY 04/24/17 04/09/18 Pantoprazole Sodium [Protonix] 40 mg PO DAILY 03/19/18 04/09/18 Ergocalciferol [Drisdol] 50,000 iu PO QWK 04/09/18 04/09/18 Loratadine [Claritin] 10 mg PO DAILY 04/09/18 04/09/18 Meloxicam [Mobic] 7.5 mg PO BID 04/09/18 04/09/18 traMADol [Ultram] 50 mg PO Q8 PRN 04/09/18 04/09/18 Review of Systems - Review of Systems Constitutional: Fevers. absent: Fatigue ENT: Sore Throat, Sinus Congestion Respiratory: SOB, Cough, Sputum, Wheezing Cardiovascular: absent: Chest Pain, Palpitations Gastrointestinal: absent: Abdominal Pain, Nausea, Vomiting Genitourinary Female: absent: Dysuria Musculoskeletal: absent: Arthralgias, Back Pain, Neck Pain Skin: absent: Rash, Pruritis Neurological: absent: Headache Psychiatric: absent: Anxiety, Depression Physical Exam Vital Signs Reviewed: Yes Vital Signs Temp Pulse Resp BP Pulse Ox 07/30/18 14:16 18 97 07/30/18 14:13 98.1 F 70 18 125/78 97 Temperature: Afebrile Blood Pressure: Normal Pulse: Regular Respiratory Rate: Normal Appearance: Positive for: Well-Appearing, Non-Toxic, Comfortable Pain Distress: None Mental Status: Positive for: Alert and Oriented X 3 - Systems Exam Head: Present: Atraumatic Conjunctiva: Present: Normal Ears: Present: Normal, NORMAL TM Mouth: Present: Moist Mucous Membranes. No: Drooling, Trismus Pharnyx: Present: Normal. No: ERYTHEMA, EXUDATE, TONSILS ENLARGED, Peritonsilar Swelling, Uvular Deviation, Muffled/Hoarse Voice Nose (Internal): Present: Engorged, Clear Mucous Neck: Present: Normal Range of Motion Respiratory/Chest: Present: Good Air Exchange, Wheezes (slight bilateral expiratory wheezing noted), Rhonchi. No: Respiratory Distress, Accessory Muscle Use, Decreased Breath Sounds, Tachypneic Cardiovascular: Present: Regular Rate and Rhythm, Normal S1, S2. No: Murmurs Abdomen: No: Tenderness Back: Present: Normal Inspection Upper Extremity: Present: Normal ROM Lower Extremity: No: Edema Neurological: Present: GCS=15, Speech Normal Skin: Present: Warm, Dry, Normal Color. No: Rashes Psychiatric: Present: Alert, Oriented x 3 Medical Decision Making ED Course and Treatment: 07/30/18 16:05 43yr old female with URI symptoms x 2 days cbc; wnl cmp; wnl cxr; no infiltrate. pt given solumedrol and duoneb; pt feeling better. vitals stable. pt with flu like symptoms; started on tamiflu. advised f/u with pmd and use nebulizer at home. advised immediate return if symptoms worsen,persist or if new symptoms develop. Patient verbalizes understanding of discharge instructions and need for immediate followup. all aspects of this case were discussed the attending of record. impression: cough, flu like illness tylenol every 4 hours as needed for pain/fever reduction Tamiflu twice daily 5 days Use nebulizer 3 times daily as needed for cough Prednisone daily 4 days Follow-up with the primary care physician within the next 2 days Return immediately if symptoms worsen persist or if new concerning symptoms develop Reassessment Condition: Re-examined, Improved - Lab Interpretations Lab Results: 07/30/18 15:30 07/30/18 15:30 Lab Results 07/30/18 15:30: WBC 5.3, RBC 4.13, Hgb 12.1, Hct 37.7, MCV 91.3, MCH 29.3, MCHC 32.1, RDW 13.9, Plt Count 217, MPV 9.3, Gran % 62.6, Lymph % (Auto) 29.7, [place] % (Auto) 6.4 H, Eos % (Auto) 0.9 L, Baso % (Auto) 0.4, Gran # 3.33, Lymph # (Auto) 1.6, [place] # (Auto) 0.3, Eos # (Auto) 0.1, Baso # (Auto) 0.02 07/30/18 15:30: Sodium 141, Potassium 3.9, Chloride 107, Carbon Dioxide 28, An ion Gap 10, BUN 8, Creatinine 0.7, Est GFR ( Amer) > 60, Est GFR (Non-Af Amer) > 60, Random Glucose 88, Calcium 9.1, Total Bilirubin 0.4, AST 41 H D, ALT 39, Alkaline Phosphatase 70, Total Protein 7.4, Albumin 4.2, Globulin 3.1, Albumin/Globulin Ratio 1.3 - RAD Interpretation Radiology Orders: 07/30/18 14:42 CHEST PORTABLE [RAD] Stat - Medication Orders Current Medication Orders: Discontinued Medications Albuterol/Ipratropium (Duoneb 3 Mg/0.5 Mg (3 Ml) Ud) 3 ml IH STAT STA Stop: 07/30/18 14:43 Last Admin: 07/30/18 15:12 Dose: 3 ml Methylprednisolone (Solu-Medrol) 125 mg IVP STAT STA Stop: 07/30/18 14:43 Last Admin: 07/30/18 15:20 Dose: 125 mg IVP Administration Document 07/30/18 15:20 BB (Rec: 07/30/18 15:23 BB [id number]) Charges for Administration # of IVP Administrations 1 Oseltamivir Phosphate (Tamiflu Cap) 75 mg PO STAT STA; Protocol Stop: 07/30/18 16:00 Disposition/Present on Arrival - Present on Arrival Any Indicators Present on Arrival: No History of DVT/PE: No History of Uncontrolled Diabetes: No Urinary Catheter: No History of Decub. Ulcer: No History Surgical Site Infection Following: None - Disposition Have Diagnosis and Disposition been Completed?: Yes Diagnosis: Cough, Flu-like symptoms Disposition: HOME/ ROUTINE Disposition Time: 16:00 Patient Plan: Discharge Condition: GOOD Discharge Instructions (ExitCare): Cough, Adult (DC), Flu Additional Instructions: tylenol every 4 hours as needed for pain/fever reduction Tamiflu twice daily 5 days Use nebulizer 3 times daily as needed for cough Prednisone daily 4 days Follow-up with the primary care physician within the next 2 days Return immediately if symptoms worsen persist or if new concerning symptoms develop Prescriptions: Albuterol HFA [Ventolin HFA 90 mcg/actuation (8 g)] 2 puff IH [id number] PRN #1 inhaler PRN Reason: Cough Albuterol 0.083% [Albuterol 0.083% Inhal [place] (2.5 mg/3 ml) UD] 1 vial IH TID PRN #1 packet PRN Reason: Cough Nebulizer [Compact Compressor Nebulizer] 1 dev XX PRN PRN #1 dev PRN Reason: Cough Oseltamivir Cap [Tamiflu] 75 mg PO BID #10 cap predniSONE [predniSONE Tab] 3 tab PO DAILY #12 tab Referrals: Andria Merino MD [Medical Doctor] - Follow up with primary Rk Bazan MD [Staff Provider] - Follow up with primary [facility] [Outside] - Follow up with primary Forms: [employer] ([place]), WORK NOTE
[2018-07-30 16:38] VITALS: BP 133/74; PULSE 69; O2SAT 99
--- NOTE | 2018-07-31 09:56 | CARD ---
APPROVED REPORT Date of service: 07/30/2018 EKG Measurement Heart [id number] <Conclusion> Normal sinus rhythm Prolonged QT Abnormal ECG
== END 2018-07-30 16:23 | disposition home or self-care (01) ==
LOC: ED 13:50
DX: J11.1 Influenza due to unidentified influenza virus with other respiratory manifestations (principal); I10 Essential (primary) hypertension; J44.9 Chronic obstructive pulmonary disease, unspecified
CPT/HCPCS: 71045; 80053; 85025; 93005; 94640; 96374; 99285; J2930

== ENCOUNTER 2018-09-25 12:55 | Outpatient (CLI) | payer MEDICARE, MEDICAID | END 2018-09-25 12:56 | disposition home or self-care (01) | LOC: RAD 12:55 ==

== ENCOUNTER 2018-11-23 14:49 | Emergency (ER) | payer MEDICARE, MEDICAID ==
[2018-11-23 14:49] VITALS: BMI 39.9
--- NOTE | 2018-11-23 16:31 | ED PDOC ---
Arrival/HPI - General Time Seen by Provider: 11/23/18 14:51 Historian: Patient - History of Present Illness Narrative History of Present Illness (Text): 11/23/18 14:51 Edilma Patrick is a 43 year old female, with a past medical history of asthma, sciatica, and herniated discs, who presents to the emergency department complaining of intermittent shortness of breath since 3 weeks. Patient also notes associated muscle pain in her back. Patient notes developing cough in the past couple of days. Patient also notes seasonal allergies with congestion. Denies fevers, chills, body aches, headache, dizziness, chest pain, nausea, vomiting, diarrhea, neck pain, or any other complaints. Time/Duration: < month (3 weeks ) Symptom Onset: Gradual Symptom Course: Unchanged Activities at Onset: Light Context: Home Past Medical History - Provider Review Nursing Documentation Reviewed: Yes - Infectious Disease Hx of Infectious Diseases: None - Tetanus Immunization Tetanus Immunization: Unknown - Cardiac Hx Hypertension: Yes - Pulmonary Hx Respiratory Disorders: Yes Hx Asthma: Yes Hx Chronic Obstructive Pulmonary Disease (COPD): Yes - Neurological Hx Neurological Disorder: Yes Other/Comment: sciatica - HEENT Hx HEENT Disorder: Yes (eyeglasses) - Renal Hx Renal Disorder: Yes Hx Kidney Stones: Yes - Endocrine/Metabolic Hx Endocrine Disorders: Yes Hx Hypothyroidism: Yes - Hematological/Oncological Hx Blood Disorders: No - Integumentary Hx Dermatological Disorder: No - Musculoskeletal/Rheumatological Hx Musculoskeletal Disorders: No - Gastrointestinal Hx Gastrointestinal Disorders: No - Genitourinary/Gynecological Hx Genitourinary Disorders: No - Psychiatric Hx Psychophysiologic Disorder: No Hx Substance Use: No - Surgical History Hx Section: Yes (x3) Hx Tubal Ligation: Yes - Anesthesia Hx Anesthesia: Yes Hx Anesthesia Reactions: No Hx Malignant Hyperthermia: No - Suicidal Assessment Feels Threatened In Home Enviroment: No Family/Social History - Physician Review Nursing Documentation Reviewed: Yes Family/Social History: Unknown Family HX Smoking Status: Never Smoked Hx Alcohol Use: Yes Hx Substance Use: No Hx Substance Use Treatment: No Allergies/Home Meds Allergies/Adverse Reactions: Allergies No Known Allergies Allergy (Verified 11/23/18 17:08) Home Medications: Home Meds Medication Instructions Recorded Confirmed Budesonide/Formoterol Fumarate 2 aer IH TID 04/24/17 11/23/18 [Symbicort 160-4.5 Mcg Inhaler] Cabergoline 0.5 mg PO Q72 04/24/17 11/23/18 Fluticasone Propionate [Flonase] 1 spray ANJALI DAILY 04/24/17 11/23/18 Hydrochlorothiazide [Microzide] 12.5 mg PO DAILY 04/24/17 11/23/18 Levothyroxine [Synthroid] 100 mcg PO DAILY 04/24/17 11/23/18 Montelukast [Singulair] 10 mg PO DAILY 04/24/17 11/23/18 amLODIPine [Norvasc] 10 mg PO DAILY 04/24/17 11/23/18 Pantoprazole Sodium [Protonix] 40 mg PO DAILY 03/19/18 11/23/18 Ergocalciferol [Drisdol] 50,000 iu PO QWK 04/09/18 11/23/18 Loratadine [Claritin] 10 mg PO DAILY 04/09/18 11/23/18 Meloxicam [Mobic] 7.5 mg PO BID 04/09/18 11/23/18 traMADol [Ultram] 50 mg PO Q8 PRN 04/09/18 11/23/18 Review of Systems - Physician Review All systems were reviewed & negative as marked: Yes - Review of Systems Constitutional: absent: Fevers, Other (chills, body aches) Respiratory: SOB, Cough Cardiovascular: absent: Chest Pain Gastrointestinal: absent: Diarrhea, Nausea, Vomiting Musculoskeletal: Back Pain. absent: Neck Pain Neurological: absent: Headache, Dizziness Physical Exam - Systems Exam Head: Present: Atraumatic, Normocephalic Pupils: Present: PERRL Extroacular Muscles: Present: EOMI Conjunctiva: Present: Normal Mouth: Present: Moist Mucous Membranes Neck: Present: Normal Range of Motion Respiratory/Chest: Present: Clear to Auscultation, Good Air Exchange. No: Respiratory Distress, Accessory Muscle Use, Wheezes, Rales, Rhonchi Cardiovascular: Present: Regular Rate and Rhythm, Normal S1, S2. No: Murmurs, Rub, Gallop Abdomen: Present: Normal Bowel Sounds. No: Tenderness, Distention, Peritoneal Signs, Rebound, Guarding Back: Present: Normal Inspection Upper Extremity: Present: Normal Inspection. No: Cyanosis, Edema Lower Extremity: Present: Normal Inspection. No: Edema Neurological: Present: GCS=15, CN II-XII Intact, Speech Normal Skin: Present: Warm, Dry, Normal Color. No: Rashes Psychiatric: Present: Alert, Oriented x 3, Normal Insight, Normal Concentration Medical Decision Making ED Course and Treatment: 11/23/18 14:51 Impression: Patient is a 43 year old female, with a past medical history of asthma, sciatic, and herniated discs, complaining of intermittent shortness of breath since 3 weeks. Patient notes associated pain in back muscles. Patient states developing a cough in the past couple days. Appreciates seasonal allergies with congestion. No fevers, chills, body aches, chest pain, or nausea. Lung exam unremarkable. Plan: -- EKG -- Labs -- Chest X-Ray 2V -- Duoneb -- Motrin -- predniSONE -- Reassess and disposition Prior Visits: Notes and results from previous visits were reviewed. Progress Notes: 11/23/18 16:33 Pt came to ED with a prescription from Acosta Singh (nurse practioner) who discussed case with Dr. Parks who recommends Chest X-Ray, blood cultures, and possible antibiotics. 11/23/18 18:37 Case signed out to Dr. Arrieta to f/u CXR, labs, reevaluate and disposition. - EKG Interpretation EKG Interpretation (Text): 11/23/18 17:14 Reviewed EKG, shows: NSR at 62 BPM. Normal Intervals. No ST elevations. Type: 12 lead EKG - Scribe Statement The provider has reviewed the documentation as recorded by the Scribe Fredy Liz All medical record entries made by the Scribe were at my direction and personally dictated by me. I have reviewed the chart and agree that the record accurately reflects my personal performance of the history, physical exam, medical decision making, and the department course for this patient. I have also personally directed, reviewed, and agree with the discharge instructions and disposition. Disposition/Present on Arrival - Present on Arrival Any Indicators Present on Arrival: No History of DVT/PE: No History of Uncontrolled Diabetes: No Urinary Catheter: No History Surgical Site Infection Following: None - Disposition Have Diagnosis and Disposition been Completed?: No Diagnosis: Shortness of breath Disposition Time: 18:37 Condition: GOOD
[2018-11-23] MEDS ORDERED: Albuterol-Ipratrop 3 mg / 0.5 (3 ml) UD IH STA (16:33)
[2018-11-23 16:56] VITALS: TEMP 98.5
[2018-11-23 18:43] LABS: BASO # 0.04 {null, K/mm3} (0.0-2.0); BASO % 0.4 % (0.0-3.0); EOS # 0.1 (0.0-0.7); EOS % 0.7 % (1.5-5.0); HEMOGLOBIN 12.2 g/dL (12.0-16.0); LYMPH % 33.8 % (22.0-35.0); MEAN CELL VOLUME 89.9 fl (80.0-105.0); MEAN CORPUSCULAR HEMOGLOBIN 29.3 pg (25.0-35.0); MEAN CORPUSCULAR HGB CONC 32.6 g/dl (31.0-37.0); MEAN PLATELET VOLUME 9.1 fl (7.0-11.0); MONO # 0.3 (0.1-0.6); MONO % 3.6 % (1.0-6.0); RBC 4.16 {null, 10^6/uL} (3.5-6.1); RED CELL DISTRIBUTION WIDTH 13.2 % (11.5-14.5); WHITE BLOOD COUNT 8.9 {null, 10^3/uL} (4.5-11.0)
[2018-11-23 18:46] LABS: ALB/GLOB RATIO 1.4 (1.1-1.8); ALBUMIN 4.5 g/dL (3.0-4.8); ALT/SGPT 30 U/L (7-56); AST/SGOT 37 U/L (14-36); BLOOD UREA NITROGEN 18 mg/dL (7-21); CALCIUM 9.9 mg/dL (8.4-10.5); GFR NON-AFRICAN AMERICAN > 60
--- NOTE | 2018-11-23 19:12 | ED PDOC ---
Physical Exam Vital Signs Reviewed: Yes Vital Signs Temp Pulse Resp BP Pulse Ox 11/23/18 16:00 98.5 F 73 18 128/74 99 Temperature: Afebrile Blood Pressure: Normal Pulse: Regular Respiratory Rate: Normal Appearance: Positive for: Well-Appearing, Non-Toxic, Comfortable Pain Distress: None Mental Status: Positive for: Alert and Oriented X 3 - Systems Exam Head: Present: Atraumatic, Normocephalic Pupils: Present: PERRL Extroacular Muscles: Present: EOMI Conjunctiva: Present: Normal Mouth: Present: Moist Mucous Membranes Neck: Present: Normal Range of Motion. No: Meningeal Signs, MIDLINE TENDERNESS Respiratory/Chest: Present: Clear to Auscultation, Good Air Exchange. No: Respiratory Distress, Accessory Muscle Use Cardiovascular: Present: Regular Rate and Rhythm, Normal S1, S2. No: Murmurs Abdomen: No: Tenderness, Distention, Peritoneal Signs Back: Present: Normal Inspection. No: CVA Tenderness, Midline Tenderness Upper Extremity: Present: Normal Inspection. No: Cyanosis, Edema Lower Extremity: Present: Normal Inspection. No: Edema Neurological: Present: GCS=15, CN II-XII Intact, Speech Normal Skin: Present: Warm, Dry, Normal Color. No: Rashes Psychiatric: Present: Alert, Oriented x 3, Normal Insight, Normal Concentration Medical Decision Making ED Course and Treatment: 1912 Signed out to me by Dr. Olmstead: Edilma Patrick is a 43 year old female, with ppmhx of asthma, sciatica, herniated discs, p/w of intermittent shortness of breath and pain in back muscles as well as cough. No tearing chest pain. labs, ekg reviewed by previous team largely unremarkable, overall pt well appearing in NAD with lungs CTA b/l Pending CXR 11/23/18 20:18 cxr unremarkable per my read lungs CTA b/l pt in NAD, ambulating well around ED without sob, denies any further complaints and wants to go home. clear for d/c home with return indications and f/u. Pt agreeable with plan: notes she has neb and albuterol inhaler. - Lab Interpretations Lab Results: Total Bilirubin 0.3 mg/dL (0.2-1.3) 11/23/18 18:30 AST 37 U/L (14-36) H 11/23/18 18:30 ALT 30 U/L (7-56) 11/23/18 18:30 Alkaline Phosphatase 78 U/L (38-126) 11/23/18 18:30 Total Protein 7.6 g/dL (5.8-8.3) 11/23/18 18:30 Albumin 4.5 g/dL (3.0-4.8) 11/23/18 18:30 Globulin 3.1 gm/dL 11/23/18 18:30 Albumin/Globulin Ratio 1.4 (1.1-1.8) 11/23/18 18:30 - RAD Interpretation Radiology Orders: 11/23/18 16:32 CHEST TWO VIEWS (PA/LAT) [RAD] Stat - Medication Orders Current Medication Orders: Discontinued Medications Albuterol/Ipratropium (Duoneb 3 Mg/0.5 Mg (3 Ml) Ud) 3 ml IH STAT STA Stop: 11/23/18 16:34 Last Admin: 11/23/18 17:30 Dose: 3 ml Ibuprofen (Motrin Tab) 600 mg PO STAT STA Stop: 11/23/18 16:34 Last Admin: 11/23/18 18:26 Dose: 600 mg MAR Pain/Vitals Document 11/23/18 18:26 KAYLA (Rec: 11[facility]23/18 18[facility]26 [id number] Pain Reassessment Is This A Pain ReAssessment? No Sleep Is patient sleeping during reassessment? No Presence of Pain Presence of Pain Yes Pain Scale Used Protocol: PSCALES Pain Scale Used Numeric Prednisone (Prednisone Tab) 60 mg PO STAT STA Stop: 11/23/18 16:35 Last Admin: 11/23/18 17:30 Dose: 60 mg Disposition/Present on Arrival - Present on Arrival Any Indicators Present on Arrival: No History of DVT/PE: No History of Uncontrolled Diabetes: No Urinary Catheter: No History of Decub. Ulcer: No History Surgical Site Infection Following: None - Disposition Have Diagnosis and Disposition been Completed?: Yes Diagnosis: Shortness of breath Disposition: HOME/ ROUTINE Disposition Time: 20:15 Condition: STABLE Discharge Instructions (ExitCare): Shortness of Breath (Dyspnea) (DC) Additional Instructions: EDILMA PATRICK, thank you for letting us take care of you today. Your provider was Jake Arrieta and you were treated for SOB. The emergency medical care you received today was directed at your acute symptoms. If you were prescribed any medication, please fill it and take as directed. It may take several days for your symptoms to resolve. Return to the Emergency Department if your symptoms worsen, do not improve, or if you have any other problems. Please contact your doctor or call one of the physicians/clinics you have been referred to that are listed on the Patient Visit Information form that is included in your discharge packet. Bring any paperwork you were given at discharge with you along with any medications you are taking to your follow up visit. Our treatment cannot replace ongoing medical care by a primary care provider outside of the emergency department. Thank you for allowing the [facility] team to be part of your care today. If you had an X-Ray or CT scan: A Radiologist will review the ED reading if any change in treatment is needed we will contact you. If you had a blood, urine, or wound culture: It will take several days for the results, if any change in treatment is needed we will contact you. If you had an STI test: It will take 48 hours for the results. Please call after 1 week if you have not heard back. Prescriptions: predniSONE [Prednisone] 40 mg PO DAILY 5 Days #10 tab Referrals: Neyda Parks MD [Primary Care Provider] - Follow up with primary [facility] [Outside] - Follow up with primary [facility] [Outside] - Follow up with primary [facility] [Outside] - Follow up with primary Forms: [facility] ([place])
[2018-11-23 20:29] VITALS: BP 116/72; PULSE 73; RESP 14; O2SAT 99
--- NOTE | 2018-11-24 08:35 | RAD ---
Date of service: 11/23/2018 HISTORY: cough and sob COMPARISON: Portable chest 07/30/2018. TECHNIQUE: Chest PA and lateral views FINDINGS: LUNGS: No active pulmonary disease. PLEURA: No significant pleural effusion identified. No pneumothorax apparent. CARDIOVASCULAR: No aortic atherosclerotic calcification present. Cardiac size appears upper limits of normal. No pulmonary vascular congestion. OSSEOUS STRUCTURES: No significant abnormalities. VISUALIZED UPPER ABDOMEN: Normal. OTHER FINDINGS: None. IMPRESSION: Upper limits normal cardiac size. No pulmonary vascular congestion. No acute pulmonary disease appreciable in the interval.
--- NOTE | 2018-11-24 09:20 | CARD ---
APPROVED REPORT Date of service: 11/23/2018 EKG Measurement Heart [id number] <Conclusion> Normal sinus rhythm Possible Left atrial enlargement Borderline ECG
== END 2018-11-23 20:28 | disposition home or self-care (01) ==
LOC: ED 14:49
DX: R06.02 Shortness of breath (principal); I10 Essential (primary) hypertension; J44.9 Chronic obstructive pulmonary disease, unspecified; Z87.442 Personal history of urinary calculi